=== PATIENT | male | born 1935 | race Caucasian/White ===

== ENCOUNTER 2019-05-09 16:54 | Inpatient (IN) ==
--- NOTE | 2019-05-09 20:07 | Internal Med History&Physical ---
<Fernando Bartlett - Last Filed: 05/09/19 20:51> Date of Encounter: 05/09/19 Time of Encounter: 20:00 Internal Medicine - H&P: HPI Chief complaint: SOB Admitted From: Emergency Dept Plans for Post Hospital Care: Home History of present illness: Mr. Puente is a 83 year old male with history of COPD, GERD, HLD, hypertension who presents to the [facility] [place] ED with shortness of breath for 2-3 days duration. The patient has some baseline mental status changes, and he is unable to provide a significant amount of his history, so most of it does come from his family members who are in the room. The patient apparently has been at his house and has been having significant shortness of breath over the past couple of days and his family decided he needed to come to the ED. He does say that in addition to this he has had some orthopnea and PND, however this may be normal for him. His family is concerned because he seems to be confused, and has been complaining of a family of spirits that have moved into his house and dogs that have been living in his furniture. While they have concerns that he has some baseline dementia per his PCP, this appears to have acutely worsened over the past 2-3 days. They do say that his social situation is very poor, and that he has been living alone up until now. He does have bed bugs at home, and they have tried to have them exterminated but have not had success with it. He has also admitted to poor PO intake, and has had some nausea and vomiting. He has no other acute symptoms at this time. In the ED at [place], the patient had labs significant for Sodium 146, Creatinine 1.54, CO2 30, Lactic Acid 1.9, BNP >5000 and Troponin 0.84. He had a CXR which showed findings suggestive of COPD with no other acute pulmonary process. There is no consolidations evident however there were findings in the left lung suggestive of either fibrotic changes versus some potential vascular congestion. He was afebrile, bradycardic and hypertensive. He did have an EKG showing a new second degree 2:1 AV block which was reported to Dr. Cabral. He was transported to [facility] with external pacing pads for further workup. Past Med Surg Social Fam HX - Past Medical History Medical history: cancer (Lung), COPD, GERD, hyperlipidemia, hypertension, other (Parkinsonism, history of second-degree heart block, anemia, hard of hearing, BPH) Psychiatric history: no psych history - Past Surgical History Surgical History: cancer surgery (Left ear), herniorrhaphy, orthopedic, other (Right ankle), vascular surgery (Femoral bypass, aortic aneurysm repair) Additional surgical history: femoral bypass. rt ankle. 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 - Social History Smoking Status: Former smoker Smokeless Tobacco Status: No Alcohol use: none Drug use: none Internal Medicine - H&P: Meds Cyanocobalamin (B-12) [Vitamin B12] 1,000 mcg PO DAILY #30 tablet 02/09/19 [Rx] Aclidinium [place] [Tudorza Pressair] 400 mcg IH BID 05/09/19 [History] Aspirin Enteric Coated [Aspirin EC] 81 mg PO DAILY 05/09/19 [History] Fluticasone/Salmeterol [Advair 500-50 Diskus] 1 each IH BID 05/09/19 [History] Levalbuterol [Xopenex INH] 1.25 mg IH Q4HR PRN 05/09/19 [History] Loratadine [Allergy Relief] 10 mg PO DAILY 05/09/19 [History] Omeprazole [PriLOSEC] 20 mg PO DAILY 05/09/19 [History] Simvastatin [Zocor] 20 mg PO HS 05/09/19 [History] Allergy/AdvReac Type Severity Reaction Status Date / Time Penicillins [PCN] Allergy Anaphylaxis Verified 05/09/19 14:51 All Systems PM: A 10-system review of systems was performed and is negative for pertinent findings except as documented above in the HPI. Review of systems: Constitutional: Denies fevers, chills, weight loss, generalized fatigue Head/Neck: Denies LOZANO, neck stiffness EENT: Denies vision changes/blurriness, rhinorrhea, congestion, sore throat CVS: Denies chest pain, palpitations, GARCIAS. Admits to orthopnea, edema, PND Pulm: Admits to SOB, cough, sputum. Denies hemoptysis, wheezing GI: Denies abdominal pain, diarrhea, constipation, melena, hematemasis. Admits to some nausea and vomiting : Denies dysuria, increased frequency, urgency, hematuria Heme: Denies ease of bleeding or bruising MSK: Denies joint pain, limited ROM Skin: Denies ulcers, color changes. Admits to rash from bed bugs Neuro: Denies LOZANO, paresthesias, focal deficits, ataxia - Constitutional Exam: Gen: Vitals noted. No acute distress. Eyes: anicteric sclerae, moist conjunctivae; no lid-lag; Pupils equal and reactive to light HENT: Atraumatic; oropharynx clear with moist mucous membranes and no mucosal ulcerations; normal hard and soft palate Neck: Trachea midline; supple, no thyromegaly or lymphadenopathy Cardiac: RRR however bradycardic, no murmur, +S1/S2 Pulmonary: CTA bilaterally, no wheezes, rales or rhonchi, equal chest expansion. Abdomen: soft, nontender, no guarding. No masses or hepatosplenomegaly MSK: ROM intact, no joint swelling noted Extremities: no BLE edema, nontender calf, no cyanosis or clubbing Skin: Normal temperature, turgor and texture; small petechial appearing rash on distal b/l LEs Neuro: moves all extremities, no focal deficits. Psych: Appropriate mood and behavior. A&Ox3 however does appear confused about events leading up to hospitalization - Assessment and Plan (1) Acute and chronic respiratory failure with hypoxia Current Visit: Yes Status: Acute Assessment and plan: Acute on chronic respiratory failure with hypoxia, unknown etiology Patient has had worsening shortness of breath for 2-3 days, requiring increased O2 use at home. Now on 4L CXR 04/09/19 shows changes consistent with COPD, however no obvious consolidation Patient has no obvious evidence of acute exacerbation on examination BNP >5000, however does not appear fluid overloaded on examination. No overt crackles or diminished lung sounds Does have an elevated troponin, new second degree heart block on EKG Plan Cardiac and O2 monitoring Repeat Trop and BNP. 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 Misha Burton aware (3) Acute kidney injury Current Visit: Yes Status: Acute Assessment and plan: Acute kidney injury, Creatinine 1.54. eGRF 43 Likely secondary to prerenal etiology in setting of poor PO intake and reported N/V We will get a UA, urine sodium and creatinine Start LR at 100mL/hr (4) COPD (chronic obstructive pulmonary disease) Current Visit: Yes Status: Acute Assessment and plan: COPD on chronic home O2, patient cannot say what amount at home At this time, the patient does have acute respiratory failure, however it is unclear if COPD is cause Not wheezing at this time, no notable sputum production Will monitor closely, consider adding steroids if necessary Continue supportive care with Duonebs and O2 Qualifiers: COPD type: unspecified COPD Qualified Code(s): J44.9 - Chronic obstructive pulmonary disease, unspecified (5) Elevated troponin Current Visit: Yes Status: Acute Assessment and plan: Elevated trop, likely demand ischemia however uncertain Will trend at this time, repeat third Cardiac monitoring Echo in AM (6) Elevated brain natriuretic peptide (BNP) level Current Visit: Yes Status: Acute Assessment and plan: BNP >5000, no overt Heart failure clinically or on imaging Will repeat at this time Continue to watch (7) Infestation by bed bug Current Visit: Yes Status: Acute Assessment and plan: Cleaned patient SW consult (8) DVT prophylaxis Current Visit: Yes Status: Acute Assessment and plan: SQ heparin - Time Spent With Patient Total time spent is greater than 50% in coordination of care (as documented) at patient's floor/unit and/or counseling patient: Lorrie Mann - Last Filed: 05/09/19 23:21> Date of Encounter: 05/09/19 All Systems PM: A 10-system review of systems was performed and is negative for pertinent findings except as documented above in the HPI. - Constitutional Vitals: Temp Pulse Resp BP Pulse Ox 98.1 F 60 14 95/66 89 05/09/19 20:11 05/09/19 20:11 05/09/19 20:11 05/09/19 20:11 05/09/19 20:11 Internal Med - H&P Results - Labs Labs: Cardiac Enzymes 05/09/19 Range/Units 21:56 Troponin I 0.53 H* (< 0.04) ng/mL - ABG Interpretation ABG results: 05/09/19 21:34 ABG pH 7.37 ABG pCO2 40 ABG pO2 76 L ABG HCO3 23 ABG Total CO2 24 ABG O2 Saturation 95 ABG Base Excess -2 - Time Spent With Patient Total time spent is greater than 50% in coordination of care (as documented) at patient's floor/unit and/or counseling patient: - Attending Attestation I performed a history and physical exam of the patient and discussed management with the resident. I reviewed the resident's note and agree with the documented findings and plan of care. Brian Puente is an 83 year old man with severe COPD brought here on transfer from [place] where he was taken to by family members with complaints of generalized weakness and poor oral intake. He also developed worsening of his shortness of breath. Based on his initial labs he is seen to have mild hypernatremia, acute kidney injury, higher than baseline troponin and elevated BNP. X-ray shows what appears to be fibrotic changes however no acute pulmonary process was reported. EKG showed a 2nd degree heart block. The patient has difficulty hearing and is not able to give much of a history. His physical exam does not show signs of hypervolemia. He is hypoxic and confirmed on ABG. Will provide supplemental oxygen and nebulizer therapy as needed. 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 Will give gentle fluids overnight and repeat his creatinine in the morning. Should undergo an echo for EF assessment with continued telemetry monitoring for heart block. YOLI SERRANO.
[2019-05-09] MEDS ORDERED: Naloxone 0.4 MG/ML INJ IVP PRN (20:40)
[2019-05-09] MEDS ORDERED: Levalbuterol 1 PUFF INHALER IH PRN (20:41)
[2019-05-09] MEDS ORDERED: Ipratropium/Albuterol Neb 3 ML IH PRN (20:44)
[2019-05-09] MEDS ORDERED: Ringers Solution, Lactated 1,000 ML IVC SCH (20:45)
[2019-05-09 21:51] LABS: ABG Base Excess -2 mEq/L (-2 to 3); ABG HCO3 23 mEq/L (21-27); ABG Oxygen Saturation 95 % (95-98); ABG PCO2 40 mmHg (35-45); ABG PH 7.37 pH Units (7.32-7.45); ABG PO2 76 mmHg (85-104); ABG TCO2 24 mEq/L (20-26)
[2019-05-09] MEDS: *HR* Heparin 5,000 UNIT/ML VIAL SQ SCH (22:02)
[2019-05-09] MEDS: Ipratropium/Albuterol Neb 3 ML IH SCH (23:24)
[2019-05-10 00:52] LABS: Bilirubin,Urine Moderate (Negative); Blood,Urine Small (Negative); Clarity,Urine Cloudy (Clear); Color,Urine Dark Yellow (Yellow); Glucose,Urine (UA) 100 mg/dL (Normal); Ketones,Urine Trace mg/dL (Negative); Leukocyte Esterase,Urine Negative (Negative); Nitrite,Urine Negative (Negative); PH,Urine 5.5 pH Units (5.0-8.0); Protein,Urine >=300 mg/dL (Neg-Trace); Specific Gravity,Urine > 1.030 (1.010-1.025); Urobilinogen,Urine Normal (Normal)
[2019-05-10 00:54] LABS: Squamous Epithelial Cell,Urine Many per lpf (None-Few)
[2019-05-10] MEDS ORDERED: Furosemide 40 MG/4 ML VIAL IVP ONE ×3 (00:58→09:20)
[2019-05-10] MEDS ORDERED: methylPREDNISolone 125 MG/2 ML VIAL IVP ONE (00:58)
[2019-05-10 01:06] LABS: Bacteria,Urine Few per hpf (None-Few); Granular Casts,Urine Few per lpf (None Seen); Hyaline Casts,Urine Moderate per lpf (None-Few)
--- NOTE | 2019-05-10 01:10 | Event Note ---
Date of Encounter: 05/10/19 Time of Encounter: 01:00 0100 Paged by nursing staff, patient is having severe SOB and has required oxymask w ith 15L O2 to maintain 93% SpO2. Saw patient, he is tripoding, has pale appearing skin, significant crackles in the bases R>L and wheezes globally. At this time, he has received about 150mL LR. The patient says that he is feeling anxious, and the nurse reports that he was saying that he "wishes Sharif would take him." Given his new presentation along with BNP >5000, I suspect that this may be acute heart failure with acute pulmonary edema in response to fluids. I ordered 40mg IV lasix and 125mg IV solu-medrol to be given stat, and we will continue to monitor the patient with strict I/Os and Daily weights. Will reassess shortly 0230 Patient continues to be acutely dyspneic, sitting at side of bed tripodding. Right lung very diminished in comparison to left with underlying crackles remaining. Mottling on b/l LEs. On 15L nonrebreather. BP stable at 141/68. Will get stat CXR and start patient on BiPAP for respiratory support and cardiac offloading. 0330 CXR appears to have worsened pulmonary edema b/l. No obvious consolidation at this time. Per nurse, patient has had about 500mL UOP since arrival. Will give another 40mg IV Lasix. He is much more comfortable on BiPAP at this time, O2 Sat ~94% on FIO2 60. Will continue to monitor overnight.
[2019-05-10] MEDS ORDERED: Morphine Sulfate 2 MG/ML SYRINGE IVP ONE (01:19)
[2019-05-10] MEDS: Ipratropium/Albuterol Neb 3 ML IH SCH ×6 (05:09→23:45)
[2019-05-10 05:27] LABS: Basophils % 0.2 %; Hematocrit 43.9 % (37.5-50.1); Hemoglobin 13.2 g/dL (12.9-16.9); Immature Granulocytes % 0.7 % (0-4); Lymphocytes # 0.3 K/mcL (0.6-4.6); Lymphocytes % 3.3 %; Mean Corpuscular HGB Conc 30.1 g/dL (31.6-35.5); Mean Corpuscular Hemoglobin 27.3 pg (28.0-33.3); Mean Corpuscular Volume 90.9 fL (83.0-100.0); Mean Platelet Volume 11.5 fL (9.4-12.4); Monocytes # 0.1 K/mcL (0.0-1.3); Monocytes % 1.3 %; Neutrophils # 9.8 K/mcL (1.6-8.9); Platelet Count 200 K/mcL (140-400); Red Blood Count 4.83 M/mcL (4.19-5.50); Red Cell Distribution Width 14.2 % (11.5-14.5); Segmented Neutrophils % 94.5 %; White Blood Count 10.3 K/mcL (4.3-11.1)
[2019-05-10 05:40] LABS: INR 1.2; Prothrombin Time 13.3 Seconds (9.4-12.1)
[2019-05-10 05:49] LABS: Albumin 3.6 g/dL (3.5-5.7); Albumin/Globulin Ratio 0.9 (1.1-2.2); Bilirubin,Total 0.7 mg/dL (0.3-1.0); Calcium 8.7 mg/dL (8.6-10.3); Chol/HDL Ratio 3.7 (0-4.9); Globulin 3.8 g/dL (2.4-3.5); Magnesium 2.1 mg/dL (1.6-2.6); Potassium 5.1 mEq/L (3.5-5.1); Total Protein 7.4 g/dL (6.4-8.9)
[2019-05-10] MEDS: *HR* Heparin 5,000 UNIT/ML VIAL SQ SCH (07:53)
[2019-05-10] MEDS ORDERED: *HR* LORazepam 2 MG/ML VIAL IVP ONE (08:52)
--- NOTE | 2019-05-10 10:00 | Electrocardiograph Report ---
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
[2019-05-10] MEDS: MethylPREDNISolone 40 MG/ML VIAL IVP SCH ×2 (11:12→21:45)
[2019-05-10] MEDS: Azithromycin 500 MG in D5% in Water 250 ML IVPB SCH (11:12)
--- NOTE | 2019-05-10 12:38 | Internal Med Progress Note ---
Hospitalist Progress Note - Encounter Date of Encounter: 05/10/19 Time of Encounter: 10:15 - Subjective Interval History: H&P reviewed. Patient with history of COPD, hypertension, hyperlipidemia, is admitted for acute hypoxic respiratory failure secondary to decompensated heart failure. Also noted to have elevated troponin of 0.8 on presentation. Pt states that he is still dyspneic but again confirmed the desire to avoid CPR or intubation. No fever overnight - Exam Vitals: Temp Pulse Resp BP Pulse Ox 97.6 F 71 16 136/74 95 05/10/19 11:19 05/10/19 11:19 05/10/19 11:22 05/10/19 11:19 05/10/19 11:22 Exam: General: Moderate respiratory distress Cardiac: Normal rate and rhythm, no murmur, +S1/S2 Pulmonary: diffuse rales and wheezes worst at the lung bases Abdomen: soft, nontender, no guarding. Extremities: mild BLE pitting edema. Calves supple Skin: warm, dry Neuro: Drowsy but easily arousable, no focal deficits. - Assessment and Plan (1) Acute and chronic respiratory failure with hypoxia Current Visit: Yes Status: Acute Assessment and Plan: Likely secondary to decompensated heart failure +/- COPD exacerbation wheezing on exam, BNP > 5000, CXR consistent with pulmonary edema requiring NRM currently, no evidence of hypercarbia continue IV diuresis, add steroid and azithromycin. Scheduled bronchodilators also had trop of 0.84 on presentation, downtrending since then. ?demand ischemia from hypoxia echocardiogram cardiology consulted BiPAP PRN (2) Acute exacerbation of chronic obstructive airways disease Current Visit: Yes Status: Acute Assessment and Plan: add steroids and azithromycin continue bronchodilators (3) Acute kidney injury Current Visit: Yes Status: Acute Assessment and Plan: ?cardiorenal in the setting of decompensated heart failure monitor on IV lasix (4) Elevated troponin Current Visit: Yes Status: Acute Assessment and Plan: ?demand ischemia from profound hypoxia downtrending from 0.84 - 0.53, EKG showing NSR with prematures supraventricular complexes echocardiogram cardiology consult resume home meds when able to take by mouth DVT Prophylaxis: SQ heparin - Time Spent with Patient Total time spent is greater than 50% in coordination of care (as documented) at patient's floor/unit and/or counseling patient: Greater than 35 minutes Plan of Care Discussed with: nurse Internal Medicine: Result - Labs CBC & Chem 7: 05/10/19 03:59 05/10/19 03:59 Labs: Short CBC 05/10/19 Range/Units 03:59 WBC 10.3 (4.3-11.1) K/mcL Hgb 13.2 (12.9-16.9) g/dL Hct 43.9 (37.5-50.1) % Plt Count 200 (140-400) K/mcL Neutrophils # 9.8 H (1.6-8.9) K/mcL BMP 05/10/19 03:59 Sodium 145 Potassium 5.1 D Chloride 108 H Carbon Dioxide 22 L BUN 32 H Creatinine 1.49 H Glucose 149 H Calcium 8.7 Cardiac Enzymes 05/09/19 Range/Units 21:56 Troponin I 0.53 H* (< 0.04) ng/mL Liver Function 05/10/19 Range/Units 03:59 Total Bilirubin 0.7 (0.3-1.0) mg/dL AST 17 (13-39) Units/L ALT 6 L (7-52) Units/L Alkaline Phosphatase 85 (34-104) Units/L Albumin 3.6 (3.5-5.7) g/dL Urine 05/10/19 Range/Units 00:24 Urine Color Dark Yellow (Yellow) Urine Clarity Cloudy A (Clear) Urine pH 5.5 (5.0-8.0) pH Units Ur Specific [place] > 1.030 H (1.010-1.025) Urine Protein >=300 H (Neg-Trace) mg/dL Urine Glucose (UA) 100 H (Normal) mg/dL - ABG Interpretation ABG results: ABG ABG pH 7.37 pH Units (7.32-7.45) 05/09/19 21:34 ABG pCO2 40 mmHg (35-45) 05/09/19 21:34 ABG pO2 76 mmHg (85-104) L 05/09/19 21:34 ABG O2 Saturation 95 % (95-98) 05/09/19 21:34 PT/INR, D-dimer PT 13.3 Seconds (9.4-12.1) H 05/10/19 03:59 - Impressions Impressions Chest X-Ray 05/10/19 02:49 IMPRESSION: Increasing bilateral airspace disease could represent pneumonia or edema. D/ / Navarro Alvarado MD / Navarro Alvarado MD Interpreting Provider: Navarro Alvarado MD Consult Discharge Plan - Plan Referrals: Nitza Lizama MD [Primary Care Provider] -
--- NOTE | 2019-05-10 13:35 | Cardiology Consult Note ---
<Santiago Beckham - Last Filed: 05/10/19 13:42> Date of Encounter: 05/10/19 Time of Encounter: 13:34 Assessment and Plan (1) AV block Current Visit: Yes Status: Acute EKG shows new LBBB compared to old EKG. Previous RBBB. Telemetry with intermittent 2:1 AV block. Frequent PVC. Frequent artifact may be secondary to labored abdominal breathing. No significant bradycardia seen. Continue to monitor telemetry. (2) Elevated troponin Current Visit: Yes Status: Acute Troponin elevation up to 0.83. NSTEMI type I vs type II in the setting of CHF and COPD exacerbation. Heparin gtt recommended for 24-48 hr. Will consider further ischemic evaluation once stable. Recommend asa and statin. No bb with AV block. (3) Acute CHF (congestive heart failure) Current Visit: Yes Status: Acute Acute CHF suspected. No prior cardiac work-up. TTE pending. CXR with bilateral airspace disease. BNP > 5000. Crackles and diminished breath sounds on exam. Abdomen distended. IV lasix given last night. 40 mg IV lasix given this AM. Continue IV diuresis until euvolemic. Strict I&O and daily weight. Qualifiers: Heart failure type: unspecified Qualified Code(s): I50.9 - Heart failure, unspecified Discussion w patient/family: The assessment and plan as outlined above was discussed with the patient and/or family members who expressed understanding and agreement. All questions were answered. Thank you for involving us in the care of your patient. Please call with any questions. History of Present Illness Consult date: 05/10/19 Requesting physician: Angelo Norris Consult reason: chest pain Chief complaint: AMS, SOB History of present illness: Mr. Puente is a 83 year old male with past medical history significant for COPD who presents from home with SOB and AMS. He apparently lives at home independently. His niece found him at his home and brought him to the ED. Cardiology consulted for bradycardia with 2:1 AV block. He is also found to have possible acute CHF. On my exam Mr. Puente is confused and SOB at rest. He was given ativan prior to my arrival. Information obtained from nurse and charts. He denies chest pain. No documented history of CAD. Past Med Surg Social Fam HX - Past Medical History Medical history: cancer, COPD, GERD, hyperlipidemia, hypertension, other Psychiatric history: no psych history - Past Surgical History Surgical History: cancer surgery, herniorrhaphy, orthopedic, other, vascular surgery Additional surgical history: femoral bypass. rt ankle. 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 - Social History Smoking Status: Former smoker Smokeless Tobacco Status: No Alcohol use: none Drug use: none Medications and Allergies Cyanocobalamin (B-12) [Vitamin B12] 1,000 mcg PO DAILY #30 tablet 02/09/19 [Rx] Aclidinium [place] [Tudorza Pressair] 400 mcg IH BID 05/09/19 [History] Aspirin Enteric Coated [Aspirin EC] 81 mg PO DAILY 05/09/19 [History] Fluticasone/Salmeterol [Advair 500-50 Diskus] 1 puff IH BID 05/09/19 [History] Levalbuterol [Xopenex INH] 1.25 mg IH Q4HR PRN 05/09/19 [History] Loratadine [Allergy Relief] 10 mg PO DAILY 05/09/19 [History] Omeprazole [PriLOSEC] 20 mg PO DAILY 05/09/19 [History] Simvastatin [Zocor] 20 mg PO HS 05/09/19 [History] Allergy/AdvReac Type Severity Reaction Status Date / Time Penicillins [PCN] Allergy Anaphylaxis Verified 05/09/19 14:51 All Systems Review: The remainder of the systems were reviewed and are negative Physical Examination Vital Signs, Last 4 Hours Temp Pulse Resp BP Pulse Ox 05/10/19 11:22 16 95 05/10/19 11:19 97.6 F 71 18 136/74 95 General: Other (Confused, respirations labored) HEENT: Atraumatic, Normocephaly, Mucus Membranes Moist Neck: No JVD, Normal carotid pulses Cardiac: Other (Irregular, PVC) Lungs: Other (respirations labored. Lung sounds diminished. ) Neuro: Alert and responsive, No focal deficits noted Abdomen: Soft, Other (round. Pt moans when palpated.) Skin: No rashes noted on visualized skin Musculoskeletal: No Chest Wall Tenderness Extremities: No Clubbing, No Cyanosis, No Edema, Normal Pulses Results 05/10/19 03:59 05/10/19 03:59 Lab Results 05/09/19 05/09/19 05/09/19 21:56 21:56 21:56 WBC Hgb Hct Plt Count INR Sodium Potassium Chloride Carbon Dioxide BUN Creatinine Glucose Calcium Magnesium Total Bilirubin AST ALT Alkaline Phosphatase Troponin I 0.53 H* B-Natriuretic Peptide > 5000 H TSH 1.842 05/10/19 05/10/19 05/10/19 03:59 03:59 03:59 WBC 10.3 Hgb 13.2 Hct 43.9 Plt Count 200 INR 1.2 Sodium 145 Potassium 5.1 D Chloride 108 H Carbon Dioxide 22 L BUN 32 H Creatinine 1.49 H Glucose 149 H Calcium 8.7 Magnesium 2.1 Total Bilirubin 0.7 AST 17 ALT 6 L Alkaline Phosphatase 85 Troponin I B-Natriuretic Peptide TSH - Imaging and Cardiology Echo: report reviewed - EKG Interpretation EKG results cardiology: personally reviewed Consult Discharge Plan - Plan Referrals: Nitza Lizama MD [Primary Care Provider] - (Patient is going to [facility] no PCP appointment needed) <Anirudh Gilbert A - Last Filed: 05/11/19 10:50> Date of Encounter: 05/11/19 - Attending Attestation I have personally performed a face to face evaluation on this patient. I have reviewed and agree with the documented findings and care plan as documented by the BIRTHING NURSE. History and Exam by me shows: 83-year-old gentleman with NSTEMI, bundle branch block (intermittent LBBB and RBBB) telemetry finding of [place] 1 AV block with echo finding of LV function 30% with global wall motion abnormality. Continue IV heparin. Recommend cardiac catheterization in view of LV dysfunction. Avoid AV fina blockers given bradycardia. Thanks, Anirudh Gilbert MD [facility] Assessment and Plan Discussion w patient/family: The assessment and plan as outlined above was discussed with the patient and/or family members who expressed understanding and agreement. All questions were answered. Thank you for involving us in the care of your patient. Please call with any questions. History of Present Illness History of present illness: Mr. Puente is a 83 year old male All Systems Review: The remainder of the systems were reviewed and are negative Physical Examination Vital Signs, Last 4 Hours Pulse Resp BP Pulse Ox 05/11/19 08:03 24 97 05/11/19 07:54 107 24 149/75 97 Results 05/11/19 02:08 05/11/19 02:08 Lab Results 07/05/10/19 05/11/19 14:59 14:59 02:08 WBC 6.7 9.2 Hgb 11.8 L 12.6 L Hct 39.0 41.4 Plt Count 191 175 INR 1.1 Sodium Potassium Chloride Carbon Dioxide BUN Creatinine Glucose Calcium Magnesium 05/11/19 02:08 WBC Hgb Hct Plt Count INR Sodium 146 H Potassium 4.5 Chloride 107 Carbon Dioxide 28 BUN 41 H Creatinine 1.51 H Glucose 135 H Calcium 8.4 L Magnesium 2.1
[2019-05-10] MEDS ORDERED: *HR* Heparin 5,000 UNIT/ML VIAL IVP ONE (14:02)
[2019-05-10] MEDS ORDERED: *HR* Heparin 5,000 UNIT/ML VIAL IVP PRN (14:02)
[2019-05-10] MEDS ORDERED: Aspirin Enteric Coated 81 MG Tablet PO SCH (14:15)
[2019-05-10] MEDS ORDERED: Perflutren Lipid Microsphere 1.3 ML in 0.9 % Sodium Chloride 8.7 ML IVP ONE (14:24)
[2019-05-10 15:16] LABS: Hemoglobin 11.8 g/dL (12.9-16.9); Mean Corpuscular HGB Conc 30.3 g/dL (31.6-35.5); Mean Corpuscular Hemoglobin 26.9 pg (28.0-33.3); Mean Platelet Volume 11.5 fL (9.4-12.4); Platelet Count 191 K/mcL (140-400); Red Blood Count 4.38 M/mcL (4.19-5.50); White Blood Count 6.7 K/mcL (4.3-11.1)
[2019-05-10 15:21] LABS: Heparin anti-factor XA UFH 0.02 IU/mL (0.30-0.70); INR 1.1
[2019-05-10] MEDS: Heparin 25,000 UNIT/250 ML D5W 25,000 UNIT/250 ML IV.SOLN IVC SCH (15:52)
[2019-05-10] MEDS: Furosemide 40 MG/4 ML VIAL IVP SCH (18:00)
[2019-05-11] MEDS: *HR* Heparin 5,000 UNIT/ML VIAL IVP PRN ×2 (01:35→23:44)
[2019-05-11 02:28] LABS: Basophils % 0.1 %; Hematocrit 41.4 % (37.5-50.1); Hemoglobin 12.6 g/dL (12.9-16.9); Immature Granulocytes % 0.4 % (0-4); Lymphocytes # 0.3 K/mcL (0.6-4.6); Lymphocytes % 3.5 %; Mean Corpuscular HGB Conc 30.4 g/dL (31.6-35.5); Mean Corpuscular Hemoglobin 28.1 pg (28.0-33.3); Mean Corpuscular Volume 92.4 fL (83.0-100.0); Mean Platelet Volume 11.7 fL (9.4-12.4); Monocytes # 0.2 K/mcL (0.0-1.3); Monocytes % 2.4 %; Neutrophils # 8.6 K/mcL (1.6-8.9); Platelet Count 175 K/mcL (140-400); Red Blood Count 4.48 M/mcL (4.19-5.50); Red Cell Distribution Width 14.1 % (11.5-14.5); Segmented Neutrophils % 93.6 %; White Blood Count 9.2 K/mcL (4.3-11.1)
[2019-05-11 02:49] LABS: Calcium 8.4 mg/dL (8.6-10.3); Magnesium 2.1 mg/dL (1.6-2.6); Potassium 4.5 mEq/L (3.5-5.1)
[2019-05-11] MEDS: Ipratropium/Albuterol Neb 3 ML IH SCH ×6 (03:46→23:36)
[2019-05-11] MEDS ORDERED: Furosemide 40 MG/4 ML VIAL IVP SCH (09:00)
[2019-05-11] MEDS: Cyanocobalamin (B-12) 1,000 MCG TABLET PO SCH (09:23)
[2019-05-11] MEDS: Furosemide 40 MG/4 ML VIAL IVP SCH (09:23)
[2019-05-11] MEDS: MethylPREDNISolone 40 MG/ML VIAL IVP SCH ×2 (09:23→20:04)
[2019-05-11] MEDS: Aspirin Enteric Coated 81 MG Tablet PO SCH (09:24)
--- NOTE | 2019-05-11 09:39 | Cardiology Progress Note ---
Date of Encounter: 05/11/19 Time of Encounter: 09:37 Assessment and Plan (1) AV block Current Visit: Yes Status: Acute EKG shows new LBBB compared to old EKG. Previous RBBB. Telemetry with intermittent 2:1 AV block initially. Telemetry review shows SR, avg HR 75 bpm. Min HR 36 BPM sinus bradycardia at 1604 yesterday. Frequent PVC. Occasional bigemeny. One episode 2:1 block for 3 seconds seen. Continue to monitor telemetry. Avoid AV fina endy. (2) Elevated troponin Current Visit: Yes Status: Acute Troponin elevation up to 0.83 and trending down. New LBBB. NSTEMI type I vs type II in the setting of CHF and COPD exacerbation. LVEF 30%. Global left ventricular systolic dysfunction. Indeterminate diastolic function. There is no LV thrombus. Normal right ventricular structure and function. Unable to estimate RVSP due to lack of TR jet. No obvious significant valvular dysfunction. Heparin gtt recommended for 24-48 hr. Will consider further ischemic evaluation. Discussed with patient but he remains confused. WIll discuss with family. States that he doesn't want to be here. Recommend asa and statin. No bb with AV block. (3) Acute CHF (congestive heart failure) Current Visit: Yes Status: Acute Acute HFrEF. TTE shows EF 30%. No prior study to compare. CXR with bilateral airspace disease. BNP > 5000. Continue IV diuresis until euvolemic. No aceI d/t CHRISTINE. No bb d/t bradycardia. Noted Scr elevation. Decrease lasix to once a day. Strict I&O and daily weight. Qualifiers: Heart failure type: unspecified Qualified Code(s): I50.9 - Heart failure, unspecified Discussion w patient/family: The assessment and plan as outlined above was discussed with the patient and/or family members who expressed understanding and agreement. All questions were answered. Thank you for involving us in the care of your patient. Please call with any questions. Subjective Principal diagnosis: chest Interval history: Mr. Puente is more alert today. Continues to be confused at times. States that he would like to go to [place]. Denies chest pain, SOB, or palpitations. Currently SR on telemetry. Objective Vital Signs, Last 4 Hours Pulse Resp BP Pulse Ox 05/11/19 08:03 24 97 05/11/19 07:54 107 24 149/75 97 General: Conversant, No Apparent Distress, Other (Confused) HEENT: Atraumatic, Normocephaly, Mucus Membranes Moist Neck: No JVD, Normal carotid pulses Cardiac: Reg Rate and Rhythm, Normal S1 and S2, No Murmur Lungs: Normal Breath Sounds, No Wheeze, Rales, Rhonchi Neuro: Alert and responsive, No focal deficits noted Abdomen: Soft, Non-Tender Skin: No rashes noted on visualized skin Musculoskeletal: No Chest Wall Tenderness Extremities: No Clubbing, No Cyanosis, No Edema, Normal Pulses Results 05/11/19 02:08 05/11/19 02:08 Lab Results 05/10/19 05/10/19 05/11/19 14:59 14:59 02:08 WBC 6.7 9.2 Hgb 11.8 L 12.6 L Hct 39.0 41.4 Plt Count 191 175 INR 1.1 Sodium Potassium Chloride Carbon Dioxide BUN Creatinine Glucose Calcium Magnesium 05/11/19 02:08 WBC Hgb Hct Plt Count INR Sodium 146 H Potassium 4.5 Chloride 107 Carbon Dioxide 28 BUN 41 H Creatinine 1.51 H Glucose 135 H Calcium 8.4 L Magnesium 2.1 - Imaging and Cardiology Echo: report reviewed - EKG Interpretation EKG results cardiology: personally reviewed Consult Discharge Plan - Plan Referrals: Nitza Lizama MD [Primary Care Provider] - (Patient is going to [facility] no PCP appointment needed)
--- NOTE | 2019-05-11 11:07 | Internal Med Progress Note ---
Hospitalist Progress Note - Encounter Date of Encounter: 05/11/19 Time of Encounter: 09:00 - Subjective Interval History: Significant improvement in his respiratory status noted. Patient denies any chest pain or worsening SOB. He is upset that he was not given food yesterday and wants to know when he can be discharged. - Exam Vitals: Temp Pulse Resp BP Pulse Ox 97.9 F 107 24 149/75 97 05/11/19 03:05 05/11/19 07:54 05/11/19 08:03 05/11/19 07:54 05/11/19 08:03 Exam: General: Alert and oriented to self and place, mild respiratory distress Cardiac: Normal rate and rhythm, no murmur, +S1/S2 Pulmonary: significantly improved aeration in both lungs, mild rales and wheezes at the lung bases Abdomen: soft, nontender, no guarding. Extremities: mild BLE pitting edema. Calves supple Skin: warm, dry Neuro: no focal deficits. - Assessment and Plan (1) Acute and chronic respiratory failure with hypoxia Current Visit: Yes Status: Acute Assessment and Plan: Likely secondary to decompensated heart failure +/- COPD exacerbation wheezing on exam, BNP > 5000, CXR consistent with pulmonary edema clinically improved with IV diuresis, steroid, azithromycin, and bronchodilators decrease lasix to 40mg QD initially had trop of 0.84 which downtrended since then. type I vs II event due to hypoxia in the setting of CHF and COPD exacerbation echocardiogram showed EF of 30%, no prior available cardiology input appreciated, to consider ischemic workup after discussing with pt's family no CARI-i due to CHRISTINE and no bb due to intermittent 2:1 AV block BiPAP PRN, wean O2 as tolerated (2) Acute exacerbation of chronic obstructive airways disease Current Visit: Yes Status: Acute Assessment and Plan: D2 steroids and azithromycin continue bronchodilators (3) Acute kidney injury Current Visit: Yes Status: Acute Assessment and Plan: ?cardiorenal in the setting of decompensated heart failure, Cr relatively stable on diuresis will decrease IV lasix to 40mg QD (4) Elevated troponin Current Visit: Yes Status: Acute Assessment and Plan: type I event vs. demand ischemia from profound hypoxia downtrending from 0.84 - 0.53, EKG showing NSR with prematures supraventricular complexes echocardiogram showed EF of 30% appreciate cardiology input, on hep gtt for 24-48 hours resume home meds for CAD DVT Prophylaxis: hep gtt - Time Spent with Patient Total time spent is greater than 50% in coordination of care (as documented) at patient's floor/unit and/or counseling patient: 25 - 35 minutes Plan of Care Discussed with: nurse Internal Medicine: Result - Labs CBC & Chem 7: 05/11/19 02:08 05/11/19 02:08 Labs: Short CBC 05/10/19 05/11/19 Range/Units 14:59 02:08 WBC 6.7 9.2 (4.3-11.1) K/mcL Hgb 11.8 L 12.6 L (12.9-16.9) g/dL Hct 39.0 41.4 (37.5-50.1) % Plt Count 191 175 (140-400) K/mcL Neutrophils # 8.6 (1.6-8.9) K/mcL BMP 05/11/19 02:08 Sodium 146 H Potassium 4.5 Chloride 107 Carbon Dioxide 28 BUN 41 H Creatinine 1.51 H Glucose 135 H Calcium 8.4 L - ABG Interpretation ABG results: ABG ABG pH 7.37 pH Units (7.32-7.45) 05/09/19 21:34 ABG pCO2 40 mmHg (35-45) 05/09/19 21:34 ABG pO2 76 mmHg (85-104) L 05/09/19 21:34 ABG O2 Saturation 95 % (95-98) 05/09/19 21:34 PT/INR, D-dimer PT 13.0 Seconds (9.4-12.1) H 05/10/19 14:59 - Impressions Impressions Echocardiogram 05/10/19 20:42 Impressions: Technically sub-optimal due to poor echocardiographic windows. LVEF 30%. Global left ventricular systolic dysfunction. Indeterminate diastolic function. There is no LV thrombus. Normal right ventricular structure and function. Unable to estimate RVSP due to lack of TR jet. No obvious significant valvular dysfunction. Left Ventricular Wall Motion: Rest Echo Findings The apex, apical inferior, mid inferior, basal inferior, apical anterior, mid anterior, basal anterior, apical septal, mid inferior septal, basal inferior septal, apical lateral, mid anterior lateral, basal anterior lateral, mid anterior septal, mid inferior lateral, basal anterior septal and basal inferior lateral sebastian were hypokinetic. Findings: Study Quality * Technically sub-optimal due to poor echocardiographic windows. Left Ventricle * LVEF 30%. * Global left ventricular systolic dysfunction. * Indeterminate diastolic function. * There is no LV thrombus. Right Ventricle * Normal right ventricular structure and function. Left Atrium * Mildly dilated left atrium. Right Atrium * Normal right atrial size. Interatrial Septum * Interatrial septum not well evaluated. Aortic Valve * Aortic valve not well visualized. * Trace aortic regurgitation. * No aortic stenosis. Mitral Valve * Mildly thickened mitral valve leaflets. * No mitral regurgitation. * No mitral stenosis. Tricuspid Valve * Tricuspid valve not well visualized. * No tricuspid regurgitation. * Unable to estimate RVSP due to lack of TR jet. Pulmonic Valve * Pulmonic valve not well visualized. Aorta * Normally sized aortic root. Pericardium * The pericardium appears normal. IVC * The IVC is not well evaluated. Pulmonary Artery * Pulmonary artery not well visualized. Consult Discharge Plan - Plan Referrals: Nitza Lizama MD [Primary Care Provider] - (Patient is going to [facility] no PCP appointment needed)
[2019-05-11] MEDS: Budesonide/Formoterol 160/4.5 1 PUFF INH IH SCH ×2 (11:45→21:10)
[2019-05-11] MEDS: Azithromycin 500 MG in D5% in Water 250 ML IVPB SCH (16:43)
[2019-05-11] MEDS: Heparin 25,000 UNIT/250 ML D5W 25,000 UNIT/250 ML IV.SOLN IVC SCH (18:15)
[2019-05-12 02:10] LABS: Hematocrit 35.3 % (37.5-50.1); Mean Corpuscular HGB Conc 30.6 g/dL (31.6-35.5); Mean Corpuscular Hemoglobin 27.6 pg (28.0-33.3); Mean Corpuscular Volume 90.3 fL (83.0-100.0); Mean Platelet Volume 11.1 fL (9.4-12.4); Platelet Count 181 K/mcL (140-400); Red Blood Count 3.91 M/mcL (4.19-5.50); Red Cell Distribution Width 14.2 % (11.5-14.5); White Blood Count 7.4 K/mcL (4.3-11.1)
[2019-05-12 02:12] LABS: Hemoglobin 10.8 g/dL (12.9-16.9)
[2019-05-12 02:28] LABS: BUN/Creatinine Ratio 39 (6-26); Blood Urea Nitrogen 49 mg/dL (8-23); Carbon Dioxide 29 mEq/L (23-29); Chloride 106 mEq/L (98-107); Glucose 181 mg/dL (70-105); Osmolality,Calculated 312 (280-300); Potassium 3.8 mEq/L (3.5-5.1); Sodium 142 mEq/L (136-145); eGFR For African Americans > 60 (> 60); eGFR For Non-African Americans 55 (> 60)
[2019-05-12] MEDS: Ipratropium/Albuterol Neb 3 ML IH SCH ×5 (04:39→20:27)
[2019-05-12] MEDS: Cyanocobalamin (B-12) 1,000 MCG TABLET PO SCH (08:17)
[2019-05-12] MEDS: Loratadine 10 MG TABLET PO SCH (08:17)
[2019-05-12] MEDS: MethylPREDNISolone 40 MG/ML VIAL IVP SCH ×2 (08:17→17:28)
[2019-05-12] MEDS: Aspirin Enteric Coated 81 MG Tablet PO SCH (08:17)
[2019-05-12] MEDS: Furosemide 40 MG/4 ML VIAL IVP SCH (08:17)
[2019-05-12] MEDS: Azithromycin 500 MG in D5% in Water 250 ML IVPB SCH (09:36)
--- NOTE | 2019-05-12 11:14 | Cardiology Progress Note ---
Date of Encounter: 05/12/19 Time of Encounter: 11:13 Assessment and Plan (1) Elevated troponin Current Visit: Yes Status: Acute Troponin elevation up to 0.83 and trending down. New LBBB. NSTEMI type I vs type II in the setting of CHF and COPD exacerbation. LVEF 30%. Global left ventricular systolic dysfunction. Indeterminate diastolic function. There is no LV thrombus. Normal right ventricular structure and function. Unable to estimate RVSP due to lack of TR jet. No obvious significant valvular dysfunction. Heparin gtt can now be discontinued since it is greatr than 48 hours. Discussed ischemic evaluation with [facility] due to above findings with patient. R/B/A of [facility] discussed and he declines at this time. Patient said he cannot decide right now. He will discuss with family. He appears to not be confused on my exam. Not clear if he can understand to make decisions. Recommend asa and statin. No bb with AV block. Palliative care consult recommended. (2) AV block Current Visit: Yes Status: Acute EKG shows new LBBB compared to old EKG. Previous RBBB. Telemetry with intermittent 2:1 AV block initially. Intermittent 2:1 AV block seen. Overnight he appeared to have periods of CHB. Now SR. Avg HR 75 bpm. Min HR 46 BPM sinus bradycardia with 2:1 block. Frequent PVC. Occasional bigemeny. Ischemic eval recommended but pt declines. Continue to monitor telemetry. Avoid AV fina endy. Will discuss further with Dr. Cabral. (3) Acute CHF (congestive heart failure) Current Visit: Yes Status: Acute Acute HFrEF. TTE shows EF 30%. No prior study to compare. CXR with bilateral airspace disease. BNP > 5000. Symptoms improved. Check CXR. No bb d/t bradycardia. Start aceI. Noted Scr elevation yesterday and decreased lasix to once a day yesterday. Now back to normal. Start oral lasix. Strict I&O and daily weight. Qualifiers: Heart failure type: unspecified Qualified Code(s): I50.9 - Heart failure, unspecified Discussion w patient/family: The assessment and plan as outlined above was discussed with the patient and/or family members who expressed understanding and agreement. All questions were answered. Thank you for involving us in the care of your patient. Please call with any questions. Subjective Principal diagnosis: chest Interval history: Mr. Puente is more alert today and less confused. Less agitated. Denies chest pain, SOB, or palpitations. Objective Vital Signs Temp Pulse Resp BP Pulse Ox 05/12/19 07:00 61 05/12/19 06:27 97.6 F 68 22 127/60 97 05/12/19 04:39 19 100 05/12/19 03:20 73 05/12/19 03:16 97.8 F 74 18 130/67 95 05/11/19 23:36 17 91 05/11/19 23:07 84 05/11/19 23:02 97.9 F 74 18 123/55 93 05/11/19 21:12 18 94 05/11/19 19:54 85 05/11/19 19:09 97.9 F 80 21 139/68 92 05/11/19 18:15 77 22 93 05/11/19 18:00 92 05/11/19 17:16 97.9 F 89 20 133/64 05/11/19 16:50 78 22 92 05/11/19 15:47 20 97 05/11/19 14:30 92 22 94 05/11/19 12:30 78 22 97 05/11/19 12:20 77 20 147/75 97 05/11/19 11:47 24 97 Intake and Output 05/11/19 05/12/19 05/12/19 23:59 07:59 15:59 Intake Total 630 / 1040 453.3 / 693.3 240 / 693.3 Output Total 450 / 1350 Balance 180 / -310 453.3 / 693.3 240 / 693.3 Intake: IV Fluids 510 / 560 153.3 / 153.3 Heparin 25,000 UNIT/250 ML D5W 260 / 310 153.3 / 153.3 25,000 unit In 250 ml @ 12 UNIT /KG/HR 8.196 mls/hr IVC .Q24H KAREN Rx#:[id number] Zithromax 500 MG In Dextrose 5% 250 / 250 250 ML @ 252 mls/hr IVPB Q24H KAREN Rx#:[id number] Oral 120 / 480 300 / 540 240 / 540 Output: Urine 450 / 1350 Other: Meal Dinner Breakfast Percent of Meal Consumed 50% 50% General: Conversant, No Apparent Distress HEENT: Atraumatic, Normocephaly, Mucus Membranes Moist Neck: No JVD, Normal carotid pulses Cardiac: Reg Rate and Rhythm, Normal S1 and S2, No Murmur Lungs: Normal Breath Sounds, No Wheeze, Rales, Rhonchi Neuro: Alert and responsive, No focal deficits noted Abdomen: Soft, Non-Tender Skin: No rashes noted on visualized skin Musculoskeletal: No Chest Wall Tenderness Extremities: No Clubbing, No Cyanosis, No Edema, Normal Pulses Results 05/12/19 01:28 05/12/19 01:28 Lab Results 05/12/19 05/12/19 01:28 01:28 WBC 7.4 Hgb 10.8 L D Hct 35.3 L Plt Count 181 Sodium 142 Potassium 3.8 Chloride 106 Carbon Dioxide 29 BUN 49 H Creatinine 1.26 Glucose 181 H Calcium 8.0 L Magnesium 2.0 - Imaging and Cardiology Echo: report reviewed - EKG Interpretation EKG results cardiology: personally reviewed Consult Discharge Plan - Plan Referrals: Nitza Lizama MD [Primary Care Provider] - (Patient is going to [facility] no PCP appointment needed)
[2019-05-12] MEDS: Budesonide/Formoterol 160/4.5 1 PUFF INH IH SCH ×2 (11:45→20:27)
--- NOTE | 2019-05-12 12:08 | Internal Med Progress Note ---
Hospitalist Progress Note - Encounter Date of Encounter: 05/12/19 Time of Encounter: 09:15 - Subjective Interval History: Continues to improve from oxygenation standpoint. Patient states that his breathing had significantly improved from the time of presentation. No chest pain, diaphoresis, nausea/vomiting, or lightheadedness. - Exam Vitals: Temp Pulse Resp BP Pulse Ox 97.6 F 78 19 139/90 95 05/12/19 06:27 05/12/19 11:51 05/12/19 11:51 05/12/19 11:51 05/12/19 11:51 Exam: General: Alert and oriented to self and place, not in distress Cardiac: Normal rate and rhythm, no murmur, +S1/S2 Pulmonary: mild rales and wheezes at the lung bases Abdomen: soft, nontender, no guarding. Extremities: mild BLE pitting edema. Calves supple Skin: warm, dry Neuro: no focal deficits. - Assessment and Plan (1) Acute and chronic respiratory failure with hypoxia Current Visit: Yes Status: Acute Assessment and Plan: Likely secondary to decompensated heart failure +/- COPD exacerbation wheezing on exam, BNP > 5000, CXR consistent with pulmonary edema clinically improving with IV diuresis, steroid, azithromycin, and bronchodilators continue lasix daily initially had trop of 0.84 which downtrended since then. type I vs II event due to hypoxia in the setting of CHF and COPD exacerbation echocardiogram showed EF of 30%, no prior available cardiology input appreciated, no immediate plan for ischemic workup start CARI-i today. No bb due to intermittent 2:1 AV block wean O2 as tolerated (2) Acute exacerbation of chronic obstructive airways disease Current Visit: Yes Status: Acute Assessment and Plan: D3 steroids and azithromycin continue bronchodilators (3) Acute kidney injury Current Visit: Yes Status: Acute Assessment and Plan: ?cardiorenal in the setting of decompensated heart failure, Cr improving on daily diuresis lasix dosing adjusted as above (4) Elevated troponin Current Visit: Yes Status: Acute Assessment and Plan: type I event vs. demand ischemia from profound hypoxia downtrending from 0.84 - 0.53, EKG showing NSR with prematures supraventricular complexes echocardiogram showed EF of 30% appreciate cardiology input, on hep gtt which is likely to be completed today. Follow with cardiology On ASA, statin and start CARI-i declines ischemic workup at this time DVT Prophylaxis: hep gtt - Time Spent with Patient Total time spent is greater than 50% in coordination of care (as documented) at patient's floor/unit and/or counseling patient: 25 - 35 minutes Plan of Care Discussed with: patient Internal Medicine: Result - Labs CBC & Chem 7: 05/12/19 01:28 05/12/19 01:28 Labs: Short CBC 05/12/19 Range/Units 01:28 WBC 7.4 (4.3-11.1) K/mcL Hgb 10.8 L D (12.9-16.9) g/dL Hct 35.3 L (37.5-50.1) % Plt Count 181 (140-400) K/mcL BMP 05/12/19 01:28 Sodium 142 Potassium 3.8 Chloride 106 Carbon Dioxide 29 BUN 49 H Creatinine 1.26 Glucose 181 H Calcium 8.0 L - ABG Interpretation ABG results: ABG ABG pH 7.37 pH Units (7.32-7.45) 05/09/19 21:34 ABG pCO2 40 mmHg (35-45) 05/09/19 21:34 ABG pO2 76 mmHg (85-104) L 05/09/19 21:34 ABG O2 Saturation 95 % (95-98) 05/09/19 21:34 PT/INR, D-dimer PT 13.0 Seconds (9.4-12.1) H 05/10/19 14:59 Consult Discharge Plan - Plan Referrals: Nitza Lizama MD [Primary Care Provider] - (Patient is going to [facility] no PCP appointment needed)
[2019-05-12] MEDS: Heparin 25,000 UNIT/250 ML D5W 25,000 UNIT/250 ML IV.SOLN IVC SCH (14:41)
[2019-05-12] MEDS: *HR* Heparin 5,000 UNIT/ML VIAL SQ SCH (17:26)
[2019-05-13] MEDS: Ipratropium/Albuterol Neb 3 ML IH SCH ×6 (00:43→19:48)
[2019-05-13] MEDS: *HR* Heparin 5,000 UNIT/ML VIAL SQ SCH ×2 (05:41→16:57)
[2019-05-13] MEDS: MethylPREDNISolone 40 MG/ML VIAL IVP SCH ×2 (05:42→16:57)
[2019-05-13 06:44] LABS: Hematocrit 35.7 % (37.5-50.1); Hemoglobin 11.1 g/dL (12.9-16.9); Mean Corpuscular HGB Conc 31.1 g/dL (31.6-35.5); Mean Corpuscular Volume 90.2 fL (83.0-100.0); Mean Platelet Volume 10.6 fL (9.4-12.4); Platelet Count 165 K/mcL (140-400); Red Blood Count 3.96 M/mcL (4.19-5.50); Red Cell Distribution Width 13.9 % (11.5-14.5)
[2019-05-13 07:04] LABS: BUN/Creatinine Ratio 37 (6-26); Blood Urea Nitrogen 44 mg/dL (8-23); Calcium 7.9 mg/dL (8.6-10.3); Carbon Dioxide 35 mEq/L (23-29); Glucose 136 mg/dL (70-105); Magnesium 2.1 mg/dL (1.6-2.6); eGFR For African Americans > 60 (> 60); eGFR For Non-African Americans 58 (> 60)
[2019-05-13] MEDS: Budesonide/Formoterol 160/4.5 1 PUFF INH IH SCH ×2 (07:29→19:48)
[2019-05-13 07:58] LABS: Chloride 101 mEq/L (98-107); Potassium 4.2 mEq/L (3.5-5.1)
[2019-05-13 08:02] LABS: Osmolality,Calculated 311 (280-300); Sodium 144 mEq/L (136-145)
[2019-05-13] MEDS: Azithromycin 250 MG TABLET PO SCH (08:39)
[2019-05-13] MEDS: Loratadine 10 MG TABLET PO SCH (08:40)
[2019-05-13] MEDS: Cyanocobalamin (B-12) 1,000 MCG TABLET PO SCH (08:40)
[2019-05-13] MEDS: Furosemide 40 MG/4 ML VIAL IVP SCH (08:40)
[2019-05-13] MEDS: Aspirin Enteric Coated 81 MG Tablet PO SCH (08:41)
--- NOTE | 2019-05-13 09:16 | Cardiology Progress Note ---
Date of Encounter: 05/13/19 Time of Encounter: 09:00 Assessment and Plan (1) Elevated troponin Current Visit: Yes Status: Acute Troponin elevation up to 0.83 and trending down. New LBBB. NSTEMI type I vs type II in the setting of CHF and COPD exacerbation. LVEF 30%. Global left ventricular systolic dysfunction. Indeterminate diastolic function. There is no LV thrombus. Normal right ventricular structure and function. Unable to estimate RVSP due to lack of TR jet. No obvious significant valvular dysfunction. Heparin gtt discontinued since it is greater than 48 hours. Discussed ischemic evaluation with [facility] due to above findings with patient and called and discussed with brother. R/B/A of C discussed. Discussed that patient may require PPM also. Suspect poor prognosis if no invasive treatment. Patient previously stated his wishes to be a DNR CCA. Patient confused and unable to make decisions at this time. He does not have a POA. Brother would like him to have LHC and further aggressive treatments. Recommend psych/risk legal evaluation to determine competency for medical decision making. Recommend asa and statin. No bb with AV block. (2) AV block Current Visit: Yes Status: Acute EKG shows new LBBB compared to old EKG. Previous RBBB. Telemetry with intermittent 2:1 AV block, mobitz type I initially. One episode CHB seen during nocturnal hours 05/11/19. No reoccurrence in last 24 hrs. No significant bradycardia. 2:1 AV block intermittently. Ischemic eval recommended but pt declines and family would like further treatment. If recurrent CHB seen may need transfer to tertiary facility. EP currently not available. (3) Acute CHF (congestive heart failure) Current Visit: Yes Status: Acute Acute HFrEF. TTE shows EF 30%. No prior study to compare. CXR with bilateral airspace disease, pulmonary edema. CXR yesterday with no change. BNP > 5000. Symptoms improved. No bb d/t bradycardia. Continue aceI. Start oral lasix. Low sodium diet. Strict I&O and daily weight. Qualifiers: Heart failure type: unspecified Qualified Code(s): I50.9 - Heart failure, unspecified Discussion w patient/family: The assessment and plan as outlined above was discussed with the patient and/or family members who expressed understanding and agreement. All questions were answered. Thank you for involving us in the care of your patient. Please call with any questions. Subjective Principal diagnosis: chest Interval history: Mr. Puente is confused this morning. Objective Vital Signs, Last 4 Hours Temp Pulse Resp BP Pulse Ox 05/13/19 07:29 18 96 05/13/19 07:15 97.5 F L 69 16 136/69 96 General: Conversant, No Apparent Distress, Other (Confused, frail) HEENT: Atraumatic, Normocephaly, Mucus Membranes Moist Neck: No JVD, Normal carotid pulses Cardiac: Reg Rate and Rhythm, Normal S1 and S2, No Murmur Lungs: Normal Breath Sounds, No Wheeze, Rales, Rhonchi Neuro: Alert and responsive, No focal deficits noted Abdomen: Soft, Non-Tender Skin: No rashes noted on visualized skin Musculoskeletal: No Chest Wall Tenderness Extremities: No Clubbing, No Cyanosis, Normal Pulses, Other (Trace edema) Results 05/13/19 06:16 05/13/19 06:16 Lab Results 05/13/19 05/13/19 06:16 06:16 WBC 6.0 Hgb 11.1 L Hct 35.7 L Plt Count 165 Sodium 144 Potassium 4.2 Chloride 101 Carbon Dioxide 35 H BUN 44 H Creatinine 1.19 Glucose 136 H Calcium 7.9 L Magnesium 2.1 - Imaging and Cardiology Echo: report reviewed - EKG Interpretation EKG results cardiology: personally reviewed Consult Discharge Plan - Plan Referrals: Nitza Lizama MD [Primary Care Provider] - (Patient is going to [facility] no PCP appointment needed)
--- NOTE | 2019-05-13 10:54 | Internal Med Progress Note ---
Hospitalist Progress Note - Encounter Date of Encounter: 05/13/19 Time of Encounter: 07:45 - Subjective Interval History: No acute events overnight. Patient does appear to be confused at time and is not able to recall the discussion that he has had with Cardiology regarding LHC or pacemaker. At the time of my interview, he initially appeared to be engaged in discussion but a few mins later, he was asking the same question again and again that were answered repeatedly. Otherwise, no chest pain, worsening shortness of breath/cough, or hemoptysis. - Exam Vitals: Temp Pulse Resp BP Pulse Ox 97.5 F L 69 18 136/69 96 05/13/19 07:15 05/13/19 07:15 05/13/19 07:29 05/13/19 07:15 05/13/19 07:29 Exam: General: Alert and oriented to self and place, not in distress Cardiac: Normal rate and rhythm, no murmur, +S1/S2 Pulmonary: mild rales and wheezes at the lung bases Abdomen: soft, nontender, no guarding. Extremities: mild BLE pitting edema. Calves supple Skin: warm, dry Neuro: no focal deficits. - Assessment and Plan (1) Acute and chronic respiratory failure with hypoxia Current Visit: Yes Status: Acute Assessment and Plan: Likely secondary to decompensated heart failure +/- COPD exacerbation wheezing on exam, BNP > 5000, CXR consistent with pulmonary edema initially had trop of 0.84 which downtrended since then. type I vs II event due to hypoxia in the setting of CHF and COPD exacerbation clinically improving with IV diuresis, steroid, azithromycin, and bronchodilators continue lasix daily, Cr continues to improve continue CARI-i, No bb due to intermittent 2:1 AV block echocardiogram showed EF of 30%, no prior available cardiology input appreciated; pt continues to show periods of confusion and is not able to recall the discussion that he has had with cardiology so far regarding LHC and pacemaker insertion will get psych input for capacity assessment wean O2 as tolerated, if he continues to require HFNC, would consider CTA given that Cr will continue to improve (2) Acute exacerbation of chronic obstructive airways disease Current Visit: Yes Status: Acute Assessment and Plan: D4 steroids and azithromycin continue bronchodilators (3) Acute kidney injury Current Visit: Yes Status: Acute Assessment and Plan: ?cardiorenal in the setting of decompensated heart failure, Cr improving on daily diuresis continue diuretics (4) Elevated troponin Current Visit: Yes Status: Acute Assessment and Plan: type I event vs. demand ischemia from profound hypoxia downtrending from 0.84 - 0.53, EKG showing NSR with prematures supraventricular complexes echocardiogram showed EF of 30% appreciate cardiology input, completed hep gtt. pt does not appear to show clear understanding of the r/b/i for LHC and pacemaker, psych consulted as above On ASA, statin and CARI-i. No bb due to high grade AVB DVT Prophylaxis: SQ hep - Time Spent with Patient Total time spent is greater than 50% in coordination of care (as documented) at patient's floor/unit and/or counseling patient: 25 - 35 minutes Plan of Care Discussed with: nurse (discussed with Cardiology) Internal Medicine: Result - Labs CBC & Chem 7: 05/13/19 06:16 05/13/19 06:16 Labs: Short CBC 05/13/19 Range/Units 06:16 WBC 6.0 (4.3-11.1) K/mcL Hgb 11.1 L (12.9-16.9) g/dL Hct 35.7 L (37.5-50.1) % Plt Count 165 (140-400) K/mcL BMP 05/13/19 06:16 Sodium 144 Potassium 4.2 Chloride 101 Carbon Dioxide 35 H BUN 44 H Creatinine 1.19 Glucose 136 H Calcium 7.9 L - ABG Interpretation ABG results: ABG ABG pH 7.37 pH Units (7.32-7.45) 05/09/19 21:34 ABG pCO2 40 mmHg (35-45) 05/09/19 21:34 ABG pO2 76 mmHg (85-104) L 05/09/19 21:34 ABG O2 Saturation 95 % (95-98) 05/09/19 21:34 PT/INR, D-dimer PT 13.0 Seconds (9.4-12.1) H 05/10/19 14:59 - Impressions Impressions Chest X-Ray 05/12/19 11:30 IMPRESSION: Question of COPD. Patchy airspace opacities bilaterally, may be related to pneumonia versus pulmonary edema. Trace bilateral pleural effusions. D/ / Karan Mendoza MD / Karan Mendoza MD Interpreting Provider: Karan Mendoza MD Consult Discharge Plan - Plan Referrals: Nitza Lizama MD [Primary Care Provider] - (Patient is going to [facility] no PCP appointment needed)
--- NOTE | 2019-05-13 12:25 | Consult Note ---
Date of Encounter: 05/13/19 Time of Encounter: 12:12 Assessment & Recommendation (1) Delirium Current visit: Yes Status: Acute Assessment & Recommendation: Client has capacity based on his assessment today. He was alert, oriented, and able to state what is being recommended and what the consequences would be if he did not follow through with the recommendations. However, his chart indicates periods of confusion and not remembering prior conversations. Suspect he is having periods of delirium and if this is the case he would lack capacity at times. Capacity can be a fluctuating thing. Based on his eval today, he has the capacity to make medical decisions. However, repeat assessments from his primary team might be needed if his clinical status and ability to process information continues to wax and wane. History of Present Illness Requesting Physician: Angelo Norris MD Reason for consult: capacity assessment History of present illness: Mr. Puente is a 83 year old male with CHF who is in need of a pacemaker. Psychiatry was consulted for a capacity assessment. Notes indicate client has been confused at times, does not remember conversations with Cardiologists, and may not have a clear understanding of what is being recommended. On eval today client was alert and oriented. He was able to tell this policy writer his heart has "damage" and is in danger of "stopping." He said his doctors are recommending a procedure in which a wire will be threaded through his blood vessels and terminate in the damaged area of his heart. He also said a "device will be placed under my skin here" and he pointed to his upper right chest. Client said without this procedure his heart is "in danger of stopping." Client stated he is "not ready to " and wants the procedure done. Client's understanding of his cardiac issues and what is being recommended is fairly simplistic but he has a basic understanding. He also understands the consequences of not going through with the procedure but on eval today he was stating he intends to have it done. Client appears to have capacity today. However, capacity can be quick to change, and based on notes in his chart his capacity to make medical changes likely waxes and wanes. Suspect he is having episodes of delirium based on his periods of confusion and not remembering prior conversations. He did not present as delirious today but given his age and medical issues, would not be surprised if delirium is a factor here. CC: Angelo Norris MD Past Med Surg Social Fam HX - Past Medical History Medical history: cancer, COPD, GERD, hyperlipidemia, hypertension, other - Past Psychiatric History Psychiatric history: Reports: no psych history Family psychiatric history: Unknown Family History of Suicide: Unknown - Past Surgical History Surgical History: cancer surgery, herniorrhaphy, orthopedic, other, vascular surgery - Social History Smoking Status: Former smoker Smokeless Tobacco Status: No Alcohol use: none Drug use: none Medications & Allergies Cyanocobalamin (B-12) [Vitamin B12] 1,000 mcg PO DAILY #30 tablet 02/09/19 [Rx] Aclidinium Unity [Tudorza Pressair] 400 mcg IH BID 05/09/19 [History] Aspirin Enteric Coated [Aspirin EC] 81 mg PO DAILY 05/09/19 [History] Fluticasone/Salmeterol [Advair 500-50 Diskus] 1 puff IH BID 05/09/19 [History] Levalbuterol [Xopenex INH] 1.25 mg IH Q4HR PRN 05/09/19 [History] Loratadine [Allergy Relief] 10 mg PO DAILY 05/09/19 [History] Omeprazole [PriLOSEC] 20 mg PO DAILY 05/09/19 [History] Simvastatin [Zocor] 20 mg PO HS 05/09/19 [History] Allergy/AdvReac Type Severity Reaction Status Date / Time Penicillins [PCN] Allergy Anaphylaxis Verified 05/09/19 14:51 Review of Systems Constitutional: Denies: fever, chills, weakness, weight change Eyes: Denies: eye pain, vision change Ears, Nose, Throat: Denies: ear pain, throat pain, dental pain, hearing loss, congestion Cardiovascular: Reports: other Respiratory: Reports: other Gastrointestinal: Denies: abdominal pain, nausea, vomiting, diarrhea, constipation Genitourinary male: Denies: urgency, dysuria, frequency, genital lesions Musculoskeletal: Denies: joint swelling, joint pain Integumentary: Denies: rash, lesions, pruritus Neurological: Denies: headache, weakness, numbness, memory loss Endocrine: Denies: fatigue, heat or cold intolerance Hematologic/Lymphatic: Reports: easy bruising. Denies: lymphadenopathy Allergic/Immunologic: Denies: urticaria, itchy eyes Psychiatry Exam - Constitutional Vitals: Temp Pulse Resp BP Pulse Ox 97.6 F 78 16 131/77 92 05/13/19 11:13 05/13/19 11:13 05/13/19 11:13 05/13/19 11:13 05/13/19 11:13 General appearance: age & developmentally appropriate - Musculoskeletal Station: relaxed Strength & Tone: normal for patient - Psychiatric Patient Orientation: Yes Person, Yes Time, Yes Place Level of alertness: Alert Behavior: calm, cooperative Psychomotor activity: Normal Eye Contact: Maintains Eye Contact Mood Description: Euthymic/stable Affect description: congruent with mood Speech Volume: Normal Speech pattern: normal rate, normal rhythm, normal tone, fluent, spontaneous Language & Vocabulary: consistent with education Thought Process: Linear Thought Content: No Suicidal ideation, No Homicidal ideation, No Overt delusions Perceptual Disturbances: No Auditory hallucinations, No Visual hallucinations Attention Span Ability: Capable of Focused Attention Memory Description: Grossly Intact Patient Reliability: Questionable Historian Fund of knowledge: Yes abstraction ability, Yes aware of current events Intelligence Estimate: Average Judgment: Fair Insight: Partial Results - Labs Labs: Laboratory Last Values WBC 6.0 K/mcL (4.3-11.1) 05/13/19 06:16 RBC 3.96 M/mcL (4.19-5.50) L 05/13/19 06:16 Hgb 11.1 g/dL (12.9-16.9) L 05/13/19 06:16 Hct 35.7 % (37.5-50.1) L 05/13/19 06:16 MCV 90.2 fL (83.0-100.0) 05/13/19 06:16 MCH 28.0 pg (28.0-33.3) 05/13/19 06:16 MCHC 31.1 g/dL (31.6-35.5) L 05/13/19 06:16 RDW 13.9 % (11.5-14.5) 05/13/19 06:16 Plt Count 165 K/mcL (140-400) 05/13/19 06:16 MPV 10.6 fL (9.4-12.4) 05/13/19 06:16 Immature Gran % 0.4 % (0-4) 05/11/19 02:08 Seg Neutrophils % 93.6 % 05/11/19 02:08 Lymphocytes % 3.5 % 05/11/19 02:08 Monocytes % 2.4 % 05/11/19 02:08 Eosinophils % 0.0 % 05/11/19 02:08 Basophils % 0.1 % 05/11/19 02:08 Neutrophils # 8.6 K/mcL (1.6-8.9) 05/11/19 02:08 Lymphocytes # 0.3 K/mcL (0.6-4.6) L 05/11/19 02:08 Monocytes # 0.2 K/mcL (0.0-1.3) 05/11/19 02:08 Eosinophils # 0.0 K/mcL (0.0-0.6) 05/11/19 02:08 Basophils # 0.0 K/mcL (0.0-0.2) 05/11/19 02:08 PT 13.0 Seconds (9.4-12.1) H 05/10/19 14:59 INR 1.1 05/10/19 14:59 Heparin Anti-Xa, Unfract 0.66 IU/mL (0.30-0.70) 05/12/19 12:28 ABG pH 7.37 pH Units (7.32-7.45) 05/09/19 21:34 ABG pCO2 40 mmHg (35-45) 05/09/19 21:34 ABG pO2 76 mmHg (85-104) L 05/09/19 21:34 ABG HCO3 23 mEq/L (21-27) 05/09/19 21:34 ABG Total CO2 24 mEq/L (20-26) 05/09/19 21:34 ABG O2 Saturation 95 % (95-98) 05/09/19 21:34 ABG Base Excess -2 mEq/L (-2 to 3) 05/09/19 21:34 O2 Delivery Device AeroMask 05/09/19 21:34 Inspired O2 8.0 (1-15=lpm [id number]%) 05/09/19 21:34 Sodium 144 mEq/L (136-145) 05/13/19 06:16 Potassium 4.2 mEq/L (3.5-5.1) 05/13/19 06:16 Chloride 101 mEq/L (98-107) 05/13/19 06:16 Carbon Dioxide 35 mEq/L (23-29) H 05/13/19 06:16 BUN 44 mg/dL (8-23) H 05/13/19 06:16 Creatinine 1.19 mg/dL (0.70-1.30) 05/13/19 06:16 Est GFR ( Amer) > 60 (> 60) 05/13/19 06:16 Est GFR (Non-Af Amer) 58 (> 60) L 05/13/19 06:16 BUN/Creatinine Ratio 37 (6-26) H 05/13/19 06:16 Glucose 136 mg/dL (70-105) H 05/13/19 06:16 POC Glucose 161 mg/dL (70-99) H 05/11/19 05:57 Calculated Osmolality 311 (280-300) H 05/13/19 06:16 Calcium 7.9 mg/dL (8.6-10.3) L 05/13/19 06:16 Magnesium 2.1 mg/dL (1.6-2.6) 05/13/19 06:16 Total Bilirubin 0.7 mg/dL (0.3-1.0) 05/10/19 03:59 AST 17 Units/L (13-39) 05/10/19 03:59 ALT 6 Units/L (7-52) L 05/10/19 03:59 Alkaline Phosphatase 85 Units/L (34-104) 05/10/19 03:59 Troponin I 0.53 ng/mL (< 0.04) H* 05/09/19 21:56 B-Natriuretic Peptide > 5000 pg/mL (Less than 100) H 05/09/19 21:56 Serum Total Protein 7.4 g/dL (6.4-8.9) 05/10/19 03:59 Albumin 3.6 g/dL (3.5-5.7) 05/10/19 03:59 Globulin 3.8 g/dL (2.4-3.5) H 05/10/19 03:59 Albumin/Globulin Ratio 0.9 (1.1-2.2) L 05/10/19 03:59 Triglycerides 86 mg/dL (< 150) 05/10/19 03:59 Cholesterol 155 mg/dL (< 200) 05/10/19 03:59 LDL Cholesterol, Calc 96 mg/dL (0-99) 05/10/19 03:59 VLDL Cholesterol, Calc 17 mg/dL (< 31) 05/10/19 03:59 HDL Cholesterol 42 mg/dL (40-59) 05/10/19 03:59 Cholesterol/HDL Ratio 3.7 (0-4.9) 05/10/19 03:59 TSH 1.842 mcIU/mL (0.340-5.600) 05/09/19 21:56 Urine Color Dark Yellow (Yellow) 05/10/19 00:24 Urine Clarity Cloudy (Clear) A 05/10/19 00:24 Urine pH 5.5 pH Units (5.0-8.0) 05/10/19 00:24 Ur Specific [place] > 1.030 (1.010-1.025) H 05/10/19 00:24 Urine Protein >=300 mg/dL (Neg-Trace) H 05/10/19 00:24 Urine Glucose (UA) 100 mg/dL (Normal) H 05/10/19 00:24 Urine Ketones Trace mg/dL (Negative) H 05/10/19 00:24 Urine Blood Small (Negative) H 05/10/19 00:24 Urine Nitrite Negative (Negative) 05/10/19 00:24 Urine Bilirubin Moderate (Negative) H 05/10/19 00:24 Urine Urobilinogen Normal mg/dL (Normal) 05/10/19 00:24 Ur Leukocyte Esterase Negative (Negative) 05/10/19 00:24 Urine Microscopic RBC 5-15 per hpf (0-3) H 05/10/19 00:24 Urine Microscopic WBC 3-5 per hpf (0-3) H 05/10/19 00:24 Ur Squamous Epith Cells Many per lpf (None-Few) H 05/10/19 00:24 Urine Bacteria Few per hpf (None-Few) 05/10/19 00:24 Hyaline Casts Moderate per lpf (None-Few) H 05/10/19 00:24 Granular Casts Few per lpf (None Seen) H 05/10/19 00:24 Ur Culture Indicated? YES (NO) A 05/10/19 00:24 - Impressions Impressions Chest X-Ray 05/12/19 11:30 IMPRESSION: Question of COPD. Patchy airspace opacities bilaterally, may be related to pneumonia versus pulmonary edema. Trace bilateral pleural effusions. D/ / Karan Mendoza MD / Karan Mendoza MD Interpreting Provider: Karan Mendoza MD Consult Discharge Plan - Plan Referrals: Nitza Lizama MD [Primary Care Provider] - (Patient is going to [facility] no PCP appointment needed)
[2019-05-13] MEDS: Furosemide 20 MG TABLET PO SCH (16:57)
[2019-05-14] MEDS: Ipratropium/Albuterol Neb 3 ML IH SCH ×5 (00:16→15:46)
[2019-05-14 02:43] LABS: Basophils % 0.3 %; Immature Granulocytes % 1.7 % (0-4); Red Cell Distribution Width 14.3 % (11.5-14.5)
[2019-05-14 02:51] LABS: Hematocrit 38.1 % (37.5-50.1); Hemoglobin 11.9 g/dL (12.9-16.9); Immature Platelets 7.2 % (1.1-6.1); Lymphocytes # 0.3 K/mcL (0.6-4.6); Lymphocytes % 3.9 %; Mean Corpuscular HGB Conc 31.2 g/dL (31.6-35.5); Mean Corpuscular Hemoglobin 27.5 pg (28.0-33.3); Mean Corpuscular Volume 88.2 fL (83.0-100.0); Mean Platelet Volume 11.8 fL (9.4-12.4); Monocytes # 0.4 K/mcL (0.0-1.3); Monocytes % 4.6 %; Neutrophils # 6.9 K/mcL (1.6-8.9); Platelet Count 168 K/mcL (140-400); Red Blood Count 4.32 M/mcL (4.19-5.50); Segmented Neutrophils % 89.5 %; White Blood Count 7.7 K/mcL (4.3-11.1)
[2019-05-14 03:01] LABS: BUN/Creatinine Ratio 36 (6-26); Blood Urea Nitrogen 45 mg/dL (8-23); Calcium 7.8 mg/dL (8.6-10.3); Carbon Dioxide 34 mEq/L (23-29); Chloride 103 mEq/L (98-107); Glucose 145 mg/dL (70-105); Magnesium 2.1 mg/dL (1.6-2.6); Osmolality,Calculated 308 (280-300); Potassium 4.3 mEq/L (3.5-5.1); Sodium 142 mEq/L (136-145); eGFR For African Americans > 60 (> 60); eGFR For Non-African Americans 55 (> 60)
[2019-05-14 03:20] LABS: Hypochromasia Present (Not Present)
[2019-05-14 03:21] LABS: Platelet Estimate Normal (Normal)
[2019-05-14] MEDS: *HR* Heparin 5,000 UNIT/ML VIAL SQ SCH (05:04)
[2019-05-14] MEDS: MethylPREDNISolone 40 MG/ML VIAL IVP SCH (05:04)
[2019-05-14] MEDS: Budesonide/Formoterol 160/4.5 1 PUFF INH IH SCH (07:33)
[2019-05-14] MEDS: Cyanocobalamin (B-12) 1,000 MCG TABLET PO SCH (08:25)
[2019-05-14] MEDS: Aspirin Enteric Coated 81 MG Tablet PO SCH (08:25)
[2019-05-14] MEDS: Furosemide 20 MG TABLET PO SCH (08:26)
[2019-05-14] MEDS: Loratadine 10 MG TABLET PO SCH (08:26)
[2019-05-14] MEDS: Azithromycin 250 MG TABLET PO SCH (08:26)
--- NOTE | 2019-05-14 09:50 | Cardiology Progress Note ---
Date of Encounter: 05/14/19 Time of Encounter: 09:07 Assessment and Plan (1) Elevated troponin Current Visit: Yes Status: Acute Troponin elevation up to 0.83 and trending down. 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 NSTEMI. LVEF 30%. Global left ventricular systolic dysfunction. Indeterminate diastolic function. There is no LV thrombus. Normal right ventricular structure and function. Unable to estimate RVSP due to lack of TR jet. No obvious significant valvular dysfunction. EKG repeated today and shows new Q waves septal DC of undetermined age. Reviewed with Dr Cabral. Recommend asa and statin. No bb with AV block. Discussed ischemic evaluation with [facility] due to above findings with patient and called and discussed with brother. R/B/A of [facility] discussed. Initially patient was confused and declined invasive evaluation for first 48 hours and he was treated with medical management and IV diuresis. Now he is more alert and after discussing further with his family yesterday he decided to proceed with [facility]. Discussed that patient may require PPM also and possible transfer to tertiary center if needed. Now with new EKG changed today patient's family called in to discuss more urgent intervention with changes. (2) AV block Current Visit: Yes Status: Acute EKG shows new LBBB compared to old EKG. Previous RBBB. Telemetry with intermittent 2:1 AV block, mobitz type I initially. Frequent 2:1 AV block seen. One episode possible CHB seen during nocturnal hours 05/11/19. No reoccurrence CHB. Unable to catch on EKG. AVg hr 62, min HR 35 bpm. Pt denies symptoms. Avoid AV blockers. Ischemic evaluation recommended and EP consult. Patient may require transfer for EP consult at tertiary center. EP currently unavailable. (3) Acute CHF (congestive heart failure) Current Visit: Yes Status: Acute Acute HFrEF. TTE shows EF 30%. No prior study to compare. CXR with bilateral airspace disease, pulmonary edema. Symptoms improved. No bb d/t bradycardia. Continue aceI. IV diuresis given during stay and he improved. Continue oral lasix. Low sodium diet. Strict I&O and daily weight. Qualifiers: Heart failure type: unspecified Qualified Code(s): I50.9 - Heart failure, unspecified Discussion w patient/family: The assessment and plan as outlined above was discussed with the patient and/or family members who expressed understanding and agreement. All questions were answered. Thank you for involving us in the care of your patient. Please call with any questions. Subjective Principal diagnosis: chest Interval history: Mr. Puente is more alert and less confused this morning. He is asking when his procedure will be done. He will need to recent his DNR status 24 hours. Procedure. Objective Vital Signs, Last 4 Hours Temp Pulse Resp BP Pulse Ox 05/14/19 07:33 17 94 05/14/19 07:23 97.6 F 64 16 138/62 94 General: Conversant, No Apparent Distress HEENT: Atraumatic, Normocephaly, Mucus Membranes Moist Neck: No JVD, Normal carotid pulses Cardiac: Other (Irregular) Lungs: Normal Breath Sounds, No Wheeze, Rales, Rhonchi Neuro: Alert and responsive, No focal deficits noted Abdomen: Soft, Non-Tender Skin: No rashes noted on visualized skin Musculoskeletal: No Chest Wall Tenderness Extremities: No Clubbing, No Cyanosis, No Edema, Normal Pulses Results 05/14/19 01:33 05/14/19 01:33 Lab Results 05/14/19 05/14/19 01:33 01:33 WBC 7.7 Hgb 11.9 L Hct 38.1 Plt Count 168 Sodium 142 Potassium 4.3 Chloride 103 Carbon Dioxide 34 H BUN 45 H Creatinine 1.25 Glucose 145 H Calcium 7.8 L Magnesium 2.1 - Imaging and Cardiology Echo: report reviewed - EKG Interpretation EKG results cardiology: personally reviewed Consult Discharge Plan - Plan Referrals: Nitza Lizama MD [Primary Care Provider] - (Patient is going to [facility] no PCP appointment needed)
[2019-05-14] MEDS ORDERED: *HR* Heparin 5,000 UNIT/ML VIAL IVP PRN ×2 (10:28)
[2019-05-14] MEDS ORDERED: Heparin 25,000 UNIT/250 ML D5W 25,000 UNIT/250 ML IV.SOLN IVC SCH (10:30)
--- NOTE | 2019-05-14 12:32 | Internal Med Progress Note ---
Hospitalist Progress Note - Encounter Date of Encounter: 05/14/19 Time of Encounter: 10:30 - Subjective Interval History: No acute events overnight, had lengthy discussion with the family members at bedside yesterday and the decision was finally made to proceed with LHC. They were also informed of the potential need for PM insertion as well. Pt otherwise denies any chest pain, worsening SOB, fever/chills, or nausea this morning. However, on telemetry, it appears to show intermittent HB. - Exam Vitals: Temp Pulse Resp BP Pulse Ox 98.1 F 77 18 131/61 91 05/14/19 11:42 05/14/19 11:42 05/14/19 11:42 05/14/19 11:42 05/14/19 11:42 Exam: General: Alert and oriented to self and place, not in distress Cardiac: Normal rate and rhythm, no murmur, +S1/S2 Pulmonary: mostly clear to auscultation except for mild rales and wheezes at the lung bases Abdomen: soft, nontender, no guarding. Extremities: mild BLE pitting edema which is improving. Calves supple Skin: warm, dry Neuro: no focal deficits. - Assessment and Plan (1) Acute and chronic respiratory failure with hypoxia Current Visit: Yes Status: Acute Assessment and Plan: Likely secondary to decompensated heart failure +/- COPD exacerbation wheezing on exam, BNP > 5000, CXR consistent with pulmonary edema initially had trop of 0.84 which downtrended since then. type I vs II event due to hypoxia in the setting of CHF and COPD exacerbation lasix switched to PO 20mg BID, continue continue steroid, azithromycin (D5), and bronchodilators. Will complete macrolide today and transition to PO PRednisone tomorrow continue CARI-i, No bb due to intermittent 2:1 AV block echocardiogram showed EF of 30%, no prior available after discussing with the family and the pt at bedside yesterday, the decision was finally made to proceed with LHC. Psych deemed that he had capacity for medical decision making at the time of their interview EKG was repeated this morning in view of frequent episodes of ?CHB. No HB noted but significant Q wave, ST depression, and T wave inversion noted in V1-4 will likely need LHC sooner than anticipated, family called in to discuss with the supervisor photostat (2) Acute exacerbation of chronic obstructive airways disease Current Visit: Yes Status: Acute Assessment and Plan: D5 steroids and azithromycin. will transition to PO Prednisone from tomorrow and complete macrolide today continue bronchodilators (3) Acute kidney injury Current Visit: Yes Status: Acute Assessment and Plan: ?cardiorenal in the setting of decompensated heart failure, Cr relatively stable on diuresis (4) Elevated troponin Current Visit: Yes Status: Acute Assessment and Plan: type I event vs. demand ischemia from profound hypoxia downtrending from 0.84 - 0.53, EKG showing NSR with prematures supraventricular complexes echocardiogram showed EF of 30% appreciate cardiology input, completed hep gtt and planning for LHC soon On ASA, statin and CARI-i. No bb due to high grade AVB DVT Prophylaxis: hep - Time Spent with Patient Total time spent is greater than 50% in coordination of care (as documented) at patient's floor/unit and/or counseling patient: Greater than 35 minutes Plan of Care Discussed with: family Internal Medicine: Result - Labs CBC & Chem 7: 05/14/19 01:33 05/14/19 01:33 Labs: Short CBC 05/14/19 Range/Units 01:33 WBC 7.7 (4.3-11.1) K/mcL Hgb 11.9 L (12.9-16.9) g/dL Hct 38.1 (37.5-50.1) % Plt Count 168 (140-400) K/mcL Neutrophils # 6.9 (1.6-8.9) K/mcL BMP 05/14/19 01:33 Sodium 142 Potassium 4.3 Chloride 103 Carbon Dioxide 34 H BUN 45 H Creatinine 1.25 Glucose 145 H Calcium 7.8 L - ABG Interpretation ABG results: ABG ABG pH 7.37 pH Units (7.32-7.45) 05/09/19 21:34 ABG pCO2 40 mmHg (35-45) 05/09/19 21:34 ABG pO2 76 mmHg (85-104) L 05/09/19 21:34 ABG O2 Saturation 95 % (95-98) 05/09/19 21:34 PT/INR, D-dimer PT 13.0 Seconds (9.4-12.1) H 05/10/19 14:59 Consult Discharge Plan - Plan Referrals: Nitza Lizama MD [Primary Care Provider] - (Patient is going to [facility] no PCP appointment needed)
[2019-05-14 12:56] LABS: Heparin anti-factor XA UFH 0.03 IU/mL (0.30-0.70); Prothrombin Time 11.4 Seconds (9.4-12.1)
[2019-05-14] MEDS ORDERED: Heparin 1,000 UNITS/500 mL 500 ML ONE (13:33)
[2019-05-14] MEDS ORDERED: *HR* Heparin 10,000 UNIT/10 ML VIAL ONE (13:33)
[2019-05-14] MEDS ORDERED: ISOVUE-370 200 ML INFUS..BTL ONE (13:33)
[2019-05-14] MEDS ORDERED: 0.9 % Sodium Chloride 1,000 ML ONE ×2 (13:33→13:42)
[2019-05-14] MEDS ORDERED: Nitroglycerin 1,000 MCG/10 ML VIAL IV ONE (13:34)
[2019-05-14] MEDS ORDERED: Verapamil 5 MG/2 ML VIAL ONE (14:32)
--- NOTE | 2019-05-14 15:11 | Pre-Sedation Evaluation ---
Pre-sedation evaluation - Pre-sedation checklist Date of procedure: 05/14/19 Procedure: heart cath Recent Vitals: Last Vital Signs Temp 98.1 F 05/14/19 11:42 Pulse 77 05/14/19 11:42 Resp 18 05/14/19 11:42 BP 131/61 05/14/19 11:42 Pulse Ox 91 05/14/19 11:42 H&P (including ROS) documented in medical record: Yes Previous reaction to sedatives/anesthetics: No Dietary Status: NPO 6 hours prior to procedure Dentition: dentures removed ASA Classification *see protocol: CLASS II-Mild systemic disease Cardiac Registry (Cardio Only) - Functional Capacity Functional Capacity: >=4 METS without symptoms - Clincal Frailty Scale Clinical Frailty Scale: Managing Well
--- NOTE | 2019-05-14 15:25 | Invasive Diagnostic Lab Proc ---
Name: Brian Puente Date of Study: 05/14/2019 Date: 1935 Ht: 70.9in Medical Record#: [id number] Age: 83 Wt: 145.51lb Gender: Male BSA: 1.84 Order #: [id number] BMI: 20.37 Physicians Procedure Physician: Sharonda Cabral MD Referring MD: Referring MD: Staff Name Position Time In JoseRamiro RN Monitor 02:05 PM Amanda Munoz RN Collections Attorney 02:05 PM Dorian Gabrielle RT (R) Scrub 02:05 PM Arabella Louis RT (R) Scrub 02:09 PM Procedures Performed Procedure CORONARY ARTERY ANGIO S&I Pre-Procedure Checklist Informed consent is complete signed and on chart. H&P is on chart. ID band is on and ID verified with patient. Patient NPO for procedure The procedure was described for the patient and questions were answered. Blood Pressure: 131/64 ECG is on chart. 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 Adequate level of comfort will be maintained. Hemodynamics will remain stable Patient will recover from procedure without complications. Respiratory function will be maintained. Cardiac rhythm will remain stable. Patient temperature will be maintained. Patient and/or family have verbalized understanding of the procedure. Patient Education Chief Complaint/Reason for Test: Cardiac Cath Developmental Category: Geriatric (65+ years) Developmentally Appropriate for Age: Yes Learning Barriers: None Education Needs: Procedure Education Method: Verbal Information Taught: Cardiac Cath Educational Evaluation: Able to repeat information Intravenous Access Time IV Size Location DC'd Fluid/Drip Rate Units RN 20g 1 10/28" Patent On Arrival Rt Arm 0.9NaCl Amanda Munoz RN Allergies PCN (penicillin) Vital Signs Time BP (mmHg) HR (bpm) O2 Sat. RR (bpm) LOC 02:11 PM / % 5 = Fully awake and oriented or at pre-proc level 02:06 PM 124 / 65 45 88 % 20 02:11 PM 137 / 57 43 93 % 28 02:16 PM 131 / 64 43 93 % 27 02:22 PM 149 / 54 43 91 % 26 02:26 PM 148 / 59 42 90 % 30 02:31 PM 151 / 55 42 92 % 26 02:37 PM 150 / 57 42 91 % 25 02:41 PM 123 / 52 42 89 % 25 02:46 PM 131 / 52 42 90 % 26 02:51 PM 141 / 58 43 92 % 29 02:56 PM 140 / 57 43 90 % 16 03:01 PM 138 / 58 41 91 % 21 Procedural Medications Time Medication Dose Units Method Given By 02:21 PM Lidocaine 2% 20 ml Subcutaneous Sharonda Cabral MD 02:35 PM Lidocaine 2% 2 ml Subcutaneous Sharonda Cabral MD 02:37 PM Heparin 2000 units Nitroglycerin 200 mcg Verapamil 2.5 mg Intraarterial Sharonda Cabral MD ASA Classification: CLASS II- Mild systemic disease (i.e. well-controlled diabetes, hypertension, asthma, cigarette smoking) Jennifer Score Preprocedure Postprocedure Activity 2- Moves 4 extremities sustained head lift Activity 2- Moves 4 extremities sustained head lift Circulation 2- SBP +/= 20 points of pre-anesthetic level Circulation 2- SBP +/= 20 points of pre-anesthetic level Consciousness 2- Awake and alert oriented x 3 Consciousness 2- Awake and alert oriented x 3 O2 Saturation 1- Needs O2 inhalation to maintain O2 saturation of 90% O2 Saturation 1- Needs O2 inhalation to maintain O2 saturation of 90% Respiratory 2- Able to deep breathe and cough well Respiratory 2- Able to deep breathe and cough well Total Score 9 Total Score 9 Contrast Agent: Isovue Diagnostic Contrast: 53 ml Total Contrast: 53 ml Fluoro Dose: 22 mGy Activated Clotting Time Time Seconds to Clot 02:47 PM 165 Procedure Log Time Note Enter By 02:05 PM CathStat 02:05 PM Vitals capture started with the following parameters, Patient=Adult, Interval=5 min, Initial Bklxsisl=298 mmHg, Deflation Rate=3 mmHg, Cuff placed on Right Arm 02:05 PM Pt arrived to civil laboratory technician 2 at 14:05 kmavis 02:05 PM Physician arrived 14:05 kmavis 02:05 PM Jessica completed kmavis 02:05 PM Sign in performed according to hospital policy. Informed consent was obtained. kmavis 02:05 PM Procedure start 14:05 kmavis 02:05 PM Ramiro Garcia RN Position: Monitor Time in: 14:05 [facility] 02:05 PM Amanda Munoz RN Position: Collections Attorney Time in: 14:05 [facility] 02:06 PM HR=45 bpm, YSVI=608/65 mmhg, SpO2=88.0 %, Resp=20 B/min, Comment=sb, heart block 02:09 PM Gabrielle Alarcon RT (R) Position: Scrub Time in: 14:05 kmavis 02:09 PM Arabella Louis RT (R) Position: Scrub Time in: 14:09 kmavis 02:10 PM Patient charges- Angio tray pack, Navilyst 3mm J, Pulse Oximetry and ACIST tubing and transducer kmavis 02:10 PM Hair removed from procedure site in procedure lab using clippers. Bilateral groin prepped with Chloraprep by Arabella Louis RT (R), then patient was draped. Skin intact. kmavis 02:11 PM Time: 14:11 Patient comfortable and pain free: Yes kmavis 02:11 PM HR=43 bpm, BPEZ=398/57 mmhg, SpO2=93.0 %, Resp=28 B/min, Comment=sb, heart block 02:11 PM Time: 14:11LOC: 5 = Fully awake and oriented or at pre-proc level kmavis 02:16 PM HR=43 bpm, IJZM=329/64 mmhg, SpO2=93.0 %, Resp=27 B/min, Comment=sb, heart block 02:16 PM Clinical Presentation: Non-STEMI kmavis 02:18 PM ASA Class CLASS II- Mild systemic disease (i.e. well-controlled diabetes, hypertension, asthma, cigarette smoking) kmavis 02:21 PM Time out was performed according to hospital policy. Conscious sedation and anesthesia was achieved (see medication log with in this report above) kmavis 02:21 PM Time: 14:21 20 ml Lidocaine 2% to right groin Subcutaneous Given by Sharonda Cabral MD kmavis 02:21 PM Access obtained by percutaneous puncture. 6Fr 10cm St Narciso Ultimum sheath placed in right Femoral vein. [id number] kmavis 02:22 PM HR=43 bpm, YFPH=239/54 mmhg, SpO2=91.0 %, Resp=26 B/min, Comment=sb, heart block 02:24 PM Access obtained by percutaneous puncture. 6Fr 10cm Terumo [employer] sheath placed in right Femoral artery. [id number] kmavis 02:25 PM Rt common iliac 100% blocked. Needle/wire pulled, Dr. Cabral holding pressure. kmavis 02:26 PM Time: 14:11 Patient comfortable and pain free: Yes kmavis 02:26 PM HR=42 bpm, BMUD=465/59 mmhg, SpO2=90.0 %, Resp=30 B/min, Comment=sb, heart block 02:30 PM Switching to left radial. Pt kmavis 02:31 PM HR=42 bpm, DJCX=714/55 mmhg, SpO2=92.0 %, Resp=26 B/min, Comment=sb, heart block 02:35 PM Time: 14:35 2 ml Lidocaine 2% to right radial Subcutaneous Given by Sharonda Cabral MD [email or web address] 02:36 PM Access obtained by percutaneous puncture. 5/6Fr 10cm Terumo Glidesheath sheath placed in right Radial artery. [id number] [email or web address] 02:37 PM HR=42 bpm, HWLE=428/57 mmhg, SpO2=91.0 %, Resp=25 B/min, Comment=sb, heart block 02:37 PM Time: 14:37 Patient given 2,000 units Heparin, 200 mcg Nitroglycerin, and 2.5 mg Verapamil Intraarterial by Sharonda Cabral MD. This is given to reduce risk of vessel spasm and thrombosis. [email or web address] 02:40 PM 0.035 260cm Navilyst 3mmJ wire [id number] jcallihan 02:41 PM HR=42 bpm, ZTXI=879/52 mmhg, SpO2=89.0 %, Resp=25 B/min, Comment=sb, heart block 02:41 PM 5Fr FR 4 catheter inserted over the wire [facility] jcallihan 02:41 PM Recorded Pressure: Ao, HR=43, Condition=Condition 1 (Aorta) Ao 122/44/69 02:43 PM RCA angiography performed in multiple views. [email or web address] 02:46 PM HR=42 bpm, YKWQ=108/52 mmhg, SpO2=90.0 %, Resp=26 B/min, Comment=sb, heart block 02:46 PM 5Fr FL3.5 catheter inserted over the wire [id number] jcallihan 02:46 PM LCA angiography performed in multiple views. [email or web address] 02:47 PM At 14:47 the ACT was 165 seconds. [email or web address] 02:51 PM HR=43 bpm, CKTH=848/58 mmhg, SpO2=92.0 %, Resp=29 B/min, Comment=sb, heart block 02:52 PM Catheter removed [email or web address] 02:52 PM Wire removed [email or web address] 02:53 PM Procedure completed at 14:53 05/14/2019 [email or web address] 02:56 PM Sign out completed: Radiation Dose 172.99 mGy, 21.9 Gy/cm2 Fluoro Time: 4.6 Isovue 370 - 200ml contrast 53 ml given by Sharonda Cabral MD. Complications: None. The patient was discharged out of the slab lifting engineer in stable condition. Sedation minutes 0. Cardiac Rehab Consult needed: No. Confirmed administered medications: Yes [email or web address] 02:56 PM HR=43 bpm, FHAQ=039/57 mmhg, SpO2=90.0 %, Resp=16 B/min, Comment=sb, heart block 02:56 PM Did you address KIERRA flow and Dominance? YesCoronary Dominance: right [email or web address] 02:56 PM Isovue 370 - 200ml,1 Bottle(s) used. [email or web address] 02:57 PM Venous sheath pulled using manual compression and V+ Pad for 10 minutes by Arabella Louis RT (R) [email or web address] 02:57 PM Arterial sheath pulled, Vasc Band closure device used and was Successful S/N. jcallihan 02:57 PM 13 ml air in Vasc Band. [email or web address] 02:57 PM Estimated Blood Loss: less than 20cc jcallihan 02:57 PM Post ECG Heart Block 3rd Degree [email or web address] 02:57 PM Post Blood Pressure 140/57 jcallihan 02:58 PM 14:58 Post Pulses Bilateral radial 1+ [email or web address] 02:58 PM Information taught Cardiac Cath and Vasc Band jcallihan 02:58 PM Learning barriers :None jcallihan 02:58 PM Education evaluation Able to repeat information jcallihan 02:58 PM Site status No bleeding/ No Hematoma - Rt Groin as reported by Arabella Louis RT (R) at 14:58 [email or web address] 02:58 PM Opsite applied jcallihan 03:01 PM HR=41 bpm, PHGR=377/58 mmhg, SpO2=91.0 %, Resp=21 B/min, Comment=sb, heart block 03:02 PM Plavix, Effient or Brilinta given No jcallihan 03:03 PM Family placed in consult room. [email or web address] 03:03 PM Complications: None [email or web address] 03:09 PM Lesion found in Proximal RCA. Pre Stenosis: 65 Pre KIERRA Flow: [email or web address] 03:09 PM Lesion found in Mid RCA. Pre Stenosis: 65 Pre KIERRA Flow: [email or web address] 03:09 PM Lesion found in Mid LAD. Pre Stenosis: 50 Pre KIERRA Flow: [email or web address] 03:09 PM Lesion found in Proximal Circumflex. Pre Stenosis: 60 Pre KIERRA Flow: [email or web address] 03:11 PM Report given to Kuldip AARON Pt taken to 2A Room #23. 15:11 [email or web address] 03:13 PM Mid/Distal Left Anterior Descending Coronary Artery and diagonal branches with 50% stenosis. If graft is supplying this area, 0 % stenosis jcallihan 03:13 PM Circumflex, Obtuse Marginal, Left Posterior Descending, and Left Posterolateral Coronary Arteries with 60 % stenosis. If graft is supplying this area, 0 % stenosis jcallihan 03:13 PM Right Coronary, Right Posterior Descending Arteries with Right Posterolateral and Acute Marginal branches with 65 % stenosis. If graft is supplying this area, 0 % stenosis jcallihan Complications Complication None None Hemodynamics Pressures Site Systolic/A Wave Diastolic/V Wave Mean AO 122 44 69 Post Procedure Information Blood Pressure: 140/57 mmHg Rhythm: Heart Block 3rd Degree Post procedural instructions were given Closure Device Time Device Success/Fail Manual Compression Successful Mechanical Compression Site Checks Time Location Status Staff Sheath In? Note 02:58 PM Rt Groin No bleeding/ No Hematoma Arabella Louis RT (R) Pulses Time Site Pre-Procedure Post-Procedure Note Bilateral radial 1+ 2:58:00 PM Bilateral radial 1+ Updated by Ramiro Garcia RN on 05/14/2019 3:17:29 PM electronically signed on 05/14/2019 3:18:04 PM with status of Final
--- NOTE | 2019-05-14 16:04 | Discharge Summary ---
- NOTES TO OUTPATIENT PROVIDER Notes to Outpatient Provider: Transferred to [facility] for pacemaker insertion Orders not resulted at time of discharge: Pending orders 05/14/19 08:17 EKG [ECG 12 lead ECG] [ECG] Stat 05/14/19 11:46 EKG [ECG 12 lead ECG] [ECG] Stat 05/14/19 13:56 CL Cardiac Catheterization [CL] Routine 05/15/19 04:00 Basic Metabolic Panel AM 0400 Complete Blood Count [HEME] AM 0400 Magnesium AM 0400 Date of Encounter: 05/14/19 Time of Encounter: 15:40 - Discharge Diagnosis (1) Acute and chronic respiratory failure with hypoxia Priority: Primary Status: Acute (2) Acute exacerbation of chronic obstructive airways disease Priority: Secondary Status: Acute (3) Acute kidney injury Priority: Secondary Status: Acute (4) Elevated troponin Priority: Secondary Status: Acute Hospital course: Mr. Puente is a 83 year old male with history of COPD on 3 L of oxygen, HTN, HLD, who was admitted on 05/09 due to acute on chronic hypoxic respiratory failure secondary to decompensated heart failure and COPD exacerbation. Also noted to have elevated troponin of 0.8 with EKG showing new LBBB. Required 15 L of oxygen alternating with BiPAP on presentation. Medically treated with aspirin, heparin drip, diuresis, steroid/azithromycin. Oxygen requirement was titrated down to 8L with the above measures. Echocardiogram showed new systolic dysfunction of 30%. Despite multiple discussions with Cardiology, myself, and the pt, he could not make his decision on LHC until the family meeting that was conducted on 05/13. He finally decided to proceed with LHC and it was performed on 05/14 which did not show any lesion amenable to PCI. During LHC, he was noted to be in complete heart block and it was also noted that, for the last 2 days, he has had intermittent 2:1 AV block on telemetry. Due to lack of EP service, transfer arrangement was made at [facility] where he was accepted. Discharge discussed with: patient, family, nurse, executive search consultant - Time Spent with Patient Total time spent providing and/or coordinating discharge services: 36 mins - Discharge Medications Prescriptions: New Lisinopril [Zestril] 5 mg PO DAILY tablet Furosemide [Lasix] 20 mg PO BIDDIURETIC tablet predniSONE [PredniSONE] 40 mg PO DAILY tablet Continued Cyanocobalamin (B-12) [Vitamin B12] 1,000 mcg PO DAILY #30 tablet Aclidinium [place] [Tudorza Pressair] 400 mcg IH BID Levalbuterol [Xopenex INH] 1.25 mg IH Q4HR PRN PRN Reason: Dyspnea Loratadine [Allergy Relief] 10 mg PO DAILY Aspirin Enteric Coated [Aspirin EC] 81 mg PO DAILY Simvastatin [Zocor] 20 mg PO HS Omeprazole [PriLOSEC] 20 mg PO DAILY Fluticasone/Salmeterol [Advair 500-50 Diskus] 1 puff IH BID Home Medications: Cyanocobalamin (B-12) [Vitamin B12] 1,000 mcg PO DAILY #30 tablet 02/09/19 [Rx] Aclidinium [place] [Tudorza Pressair] 400 mcg IH BID 05/09/19 [History] Aspirin Enteric Coated [Aspirin EC] 81 mg PO DAILY 05/09/19 [History] Fluticasone/Salmeterol [Advair 500-50 Diskus] 1 puff IH BID 05/09/19 [History] Levalbuterol [Xopenex INH] 1.25 mg IH Q4HR PRN 05/09/19 [History] Loratadine [Allergy Relief] 10 mg PO DAILY 05/09/19 [History] Omeprazole [PriLOSEC] 20 mg PO DAILY 05/09/19 [History] Simvastatin [Zocor] 20 mg PO HS 05/09/19 [History] Furosemide [Lasix] 20 mg PO BIDDIURETIC tablet 05/14/19 [Rx] Lisinopril [Zestril] 5 mg PO DAILY tablet 05/14/19 [Rx] predniSONE [PredniSONE] 40 mg PO DAILY tablet 05/14/19 [Rx] Allergies/Adverse Reactions: Allergy/AdvReac Type Severity Reaction Status Date / Time Penicillins [PCN] Allergy Anaphylaxis Verified 05/09/19 14:51 Date of admission: 05/10/19 03:07 Primary care physician: Nitza Lizama Consults: 05/09/19 20:13 Consult to Nutrition [CONS] Routine Comment: Consulting Provider: NUTRITION Reason for Dietary Consult: MST Score Consult to Sintering Press Operator [CONS] Routine Reason for SW Consult: family request for possible 24 hour care 05/09/19 20:43 Consult to Cardiology [CONS] Routine Comment: Consulting Provider: Cardiology Ana Reason for Consult: new 2nd degree av block, Dr. Cabral aware Call Completed: Yes 05/10/19 08:41 Consult to Nurse Navigator [CONS] Routine Comment: COPD 05/13/19 06:51 Consult to Occupational Therapy [CONS] Routine Comment: Evaluate, develop and implement POC Reason for Consult: eval and tx Does patient have active BEDREST order?: No Is patient medically & hemodynamically stable?: Yes Consult to Physical Therapy [CONS] Routine Comment: Evaluate, develop and implement POC Reason for Consult: eval and tx Does patient have active BEDREST order?: No Is patient medically & hemodynamically stable?: Yes 05/13/19 10:43 Consult to Psychiatry [CONS] Routine Consulting Provider: Psychiatry Ana Reason consult: Capacity assessment Other reason and/or additional details: new onset heart failure and high grade heart block needing intervention but pt appears to lack understanding of the circumstances Call Completed: Yes - Constitutional Vitals: Temp Pulse Resp BP Pulse Ox 98.1 F 77 18 131/61 91 05/14/19 11:42 05/14/19 11:42 05/14/19 11:42 05/14/19 11:42 05/14/19 11:42 Exam: General: Alert and oriented to self and place, not in distress Cardiac: Normal rate and rhythm, no murmur, +S1/S2 Pulmonary: mostly clear to auscultation except for mild rales and wheezes at the lung bases Abdomen: soft, nontender, no guarding. Extremities: mild BLE pitting edema which is improving. Calves supple Skin: warm, dry Neuro: no focal deficits. - Patient Status Disposition: Transfer Critical Access Hosp Condition: Critical - Discharge Instructions Instructions: Heart Failure (DC), Acute Respiratory Distress Syndrome (DC), Chronic Obstructive Pulmonary Disease (DC) Follow Up With: Nitza Lizama MD [Primary Care Provider] - (Patient is going to [facility] no PCP appointment needed) - Diet and Activity Activity: as per the cardiac rehab Diet: low salt diet
[2019-05-14 16:30] VITALS: BP 145/71
[2019-05-14] MEDS ORDERED: MethylPREDNISolone 40 MG/ML VIAL IVP ONE (18:00)
[2019-05-14] MEDS ORDERED: *HR* Heparin 5,000 UNIT/ML VIAL SQ SCH (18:00)
[2019-05-15] MEDS ORDERED: predniSONE 20 MG TABLET PO SCH (09:00)
--- NOTE | 2019-05-15 10:56 | Electrocardiograph Report ---
[address] [place], [place] [address] Test Date: 2019-05-14 Pat Name: Brian Puente Department: 112 Room: 2A23 Gender: M Cigar Head Stringer: : 1935 Requested By: Angelo Norris Order Number: [id number] Reading MD: Toño Rodriguez Measurements Intervals [place] Rate: 82 P: 59 [place]: 147 QRS: -66 QRSD: 137 T: 19 QT: 467 QTc: 505 Interpretive Statements SINUS RHYTHM INTRAVENTRICULAR CONDUCTION DELAY ANTEROSEPTAL MYOCARDIAL INFARCTION, LIKELY RECENT ANTERIOR ISCHEMIA Electronically Signed On 05-15-2019 10:55:36 EDT by Toño Rodriguez
--- NOTE | 2019-05-15 11:11 | Electrocardiograph Report ---
[address] [place], [place] [address] Test Date: 2019-05-14 Pat Name: Brian Puente Department: 112 Room: 2A23 Gender: M Dairy Tester: MODE : 1935 Requested By: Santiago Beckham Order Number: [id number] Reading MD: Toño Rodriguez Measurements Intervals [place] Rate: 41 P: 64 [place]: 142 QRS: 11 QRSD: 108 T: 268 QT: 558 QTc: 494 Interpretive Statements SINUS BRADYCARDIA ANTEROSEPTAL ISCHEMIA Electronically Signed On 05-15-2019 11:09:36 EDT by Toño Rodriguez
== END 2019-05-14 17:26 | disposition critical access hospital (66) | DRG 190 ==
LOC: 2NNU → SUATTDRO 05-10 03:07 → 2ANU 05-12 14:05
PROVIDERS: ADMIT Internal Medicine; ATTEND Internal Medicine